=== PATIENT | female | born 1950 | race Caucasian/White ===

== ENCOUNTER 2016-06-27 09:10 | Inpatient (IN) | payer SELFPAY ==
--- NOTE | 2016-06-27 09:25 | EDM.PDOC ---
ED HISTORY OF PRESENT ILLNESS - General Chief Complaint: Respiratory Problem Stated Complaint: NAUSEA AND VOMITING Time Seen by Provider: 06/27/16 09:24 Source of Information: Reports: Patient History Limitations: Reports: No limitations - History of Present Illness INITIAL COMMENTS - FREE TEXT/NARRATIVE: 66-year-old female presents the ED at the request of walk in clinic to care provider today. Patient has not been well since last weekend. She developed fever cough headache diffuse myalgia compatible with influenza. She started having nausea and vomiting last Thursday, June 21. She was nauseated the following day but has vomited intermittently since that time with very little fluid or oral intake. Having diarrhea small quantities with sudden onset of urge to go 3-4 times per day the last few days as well. Nose lightheaded dizzy and very weak. Feels queasy and nauseated at this time.he states the cough is getting better. No color to the sputum. Does feel more short of breath on minimal exertion. Symptom Onset Date: 06/21/16 Timing/Duration: Reports: Day(s):, Getting worse, Gradual onset Severity: moderate Location, General: Reports: generalized (generalized weakness.), other ( continued nausea and inability to eat or drink much. Weak and dizzy.) Quality: Reports: Other (weak and dizzy) Improves with: Reports: None Worsens with: Reports: Rest Context, General: Denies: Activity, Exercise, Lifting, Sick contact, Trauma, Other Associated Symptoms (General): Reports: cough, cough w sputum, fever/chills ( perhaps low-grade fever but nothing high), headaches, loss of appetite, malaise , nausea/vomiting, shortness of breath, weakness, other (loose stools up to 4 times per day.). Denies: confusion, chest pain, diaphoresis (clear phlegm.), rash, seizure (on minimal exertion) Treatments JAW SKINNER: Reports: Acetaminophen - Related Data Allergies/ADRs: Allergies Allergy/AdvReac Type Severity Reaction Status Date / Time No Known Allergies Allergy Verified 06/27/16 09:34 Home Meds: Home Meds Enzymes,Digestive [Enzyme Digest] 1 tab PO DAILY 06/27/16 [History] Ginkgo Biloba 40 mg PO DAILY 06/27/16 [History] Herbal Drugs [[employer]] 1 each PO DAILY 06/27/16 [History] Social & Family History - Living Situation & Occupation Living situation: Reports: Occupation: retired ED ROS GENERAL - Review of Systems Review Of Systems: See Below Constitutional: Reports: fever, malaise, weakness, fatigue, decreased appetite ( feel she's lost 5 or 6 pounds over the last week.), weight loss. Denies: chills (low-grade), night sweats, diaphoresis, weight gain HEENT: Reports: Other (dry mouth.) Respiratory: Reports: shortness of breath (on exertion), cough. Denies: wheezing, pleuritic chest pain, hemoptysis (cough which is getting better her sputum tends to be clear.) Cardiovascular: Denies: Chest pain, Blood pressure problem Endocrine: Reports: fatigue GI/Abdominal: Reports: Abdominal pain (intermittent abdominal cramping pain. Sudden urge to defecate.), Diarrhea (loose stools yellow in color perhaps some mucus no blood. 3-4 per day. This is been loss of the last 3 days), Decreased appetite, Nausea (over the last week.), Vomiting. 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 She thought it was a circulation check she has good pulses. Has noticed a discoloration of her great toenail.) Psychiatric: Reports: No symptoms Hematologic/Lymphatic: Reports: no symptoms Immunologic: Reports: no symptoms ED EXAM, GENERAL - Physical Exam Exam: See Below Exam Limited By: No limitations General Appearance: alert, WD/WN, moderate distress (I. can smell ketones on her breath and she does appear ill.) Eye Exam: bilateral eye: normal inspection Ears: normal TMs Throat/Mouth: Other Head: atraumatic (tongue is very dry and coated. No infection in the oropharynx. ), normocephalic Neck: normal inspection, supple, non-tender, full range of motion, other (no JVD.). No: carotid bruit, lymphadenopathy (L), lymphadenopathy (R), thyromegaly Respiratory/Chest: rhonchi (scattered rhonchi in both upper lobes and left lower lobe.). No: wheezing Cardiovascular: regular rate, rhythm (resting tachycardia 1:15 per minute), no edema, no gallop, tachycardia, systolic murmur (grade 1/6 best heard at the left lower sternal border compatible with some mild aortic stenosis.). No: JVD Peripheral Pulses: 2+: posterior tibial (L), posterior tibial (R), dorsalis pedis (L), dorsalis pedis (R) GI/Abdominal: normal bowel sounds, soft, non tender, no organomegaly, no distention, no abnormal bruit, no mass Back Exam: normal inspection, full range of motion. No: CVA tenderness (L), CVA tenderness (R) Extremities: normal inspection, normal range of motion, non-tender, no pedal edema, normal capillary refill, other (he does have blackish discoloration of the great toenail on the right side. This is from blood trauma to the end of the nail with injury to the nailbed likely from upgaze to a shoe. He complains of numbness and tingling in the right leg particularly at bedtime compatible with a peripheral neuropathy. The circulation I she has good 2-3+ posterior tibial and and dorsalis pedis pulses to that foot. She has never been a smoker. She doesn't know she is diabetic.) Neurological: alert, oriented, CN II-XII intact Psychiatric: normal affect, normal mood Skin Exam: Warm, Dry, Intact, Normal color, No rash EKG INTERPRETATION EKG Date: 06/27/16 Time: 09:55 Rhythm: other (sinus tachycardia) Rate (beats/min): 110 [place]: LAD-left axis deviation (mild left axis deviation -11) P-wave: enlarged (consider left atrial hypertrophy) QRS: other ST-T: other (diffuse early repolarization pattern) QT: normal Course - Vital Signs Last Recorded V/S: Last Vital Signs Temp 37.5 C 06/27/16 11:59 Pulse 108 H 06/27/16 11:45 Resp 18 06/27/16 11:45 BP 137/69 06/27/16 11:45 Pulse Ox 94 L 06/27/16 11:45 - Orders/Labs/Meds Orders: Active Orders 24 hr Category Date Time Status EKG Documentation Completion [RC] STAT Care 06/27/16 09:36 Active Oxygen Therapy [RC] ASDIRECTED Care 06/27/16 10:21 Active Chest 1V Frontal [CR] Stat Exams 06/27/16 09:35 Taken KETONES,BLOOD [CHEM] Stat Lab 06/27/16 12:52 Ordered Dextrose 5%-0.9% NaCl [Dextrose 5%-Normal Saline] 1,000 Med 06/27/16 09:45 Active ml IV ASDIRECTED Levofloxacin/Dextrose 5%-Water [Levaquin in D5W 750 MG/ Med 06/27/16 11:40 Active 150 ML] 750 mg Premix Bag 1 bag IV ONETIME Sodium Chloride 0.9% [Normal Saline] 1,000 ml Med 06/27/16 11:45 Active IV ASDIRECTED Medication Orders Dextrose/Sodium Chloride (Dextrose 5%-Normal Saline) 1,000 mls @ 999 mls/hr IV ASDIRECTED KHALIF Last Admin: 06/27/16 10:06 Dose: 999 mls/hr Sodium Chloride (Normal Saline) 1,000 mls @ 500 mls/hr IV ASDIRECTED [facility] Last Admin: 06/27/16 11:55 Dose: 500 mls/hr Levofloxacin/Dextrose 750 mg/ (Premix) 150 mls @ 100 mls/hr IV ONETIME ONE Stop: 06/27/16 13:09 Last Admin: 06/27/16 11:55 Dose: 100 mls/hr Labs: Laboratory Tests 06/27/16 06/27/16 06/27/16 Range/Units 09:45 10:00 10:00 WBC 4.89 (3.98-10.04) K/mm3 RBC 5.40 H (3.98-5.22) M/mm3 Hgb 16.5 H (11.2-15.7) gm/L Hct 47.3 H (34.1-44.9) % MCV 87.6 (79.4-94.8) fl MCH 30.6 (25.6-32.2) pg MCHC 34.9 (32.2-35.5) g/dl RDW Std Deviation 41.0 (36.4-46.3) fL Plt Count 151 L (182-369) K/mm3 MPV 10.6 (9.4-12.3) fl Neutrophils % (Manual) 72 H (40-60) % Band Neutrophils % 7 (0-10) % Lymphocytes % (Manual) 16 L (20-40) % Atypical Lymphs % 0 % Monocytes % (Manual) 5 (2-10) % Eosinophils % (Manual) 0 L (0.7-5.8) % Basophils % (Manual) 0 L (0.1-1.2) Platelet Estimate Adequate RBC Morph Comment Normal PT 11.8 (8.0-13.0) SECONDS INR 1.08 Sodium (136-145) mEq/L Potassium (3.5-5.1) mEq/L Chloride (98-107) mEq/L Carbon Dioxide (21-32) mEq/L Anion Gap (5-15) BUN (7-18) mg/dL Creatinine (0.55-1.02) mg/dL Est Cr Clr Drug Dosing mL/min Estimated GFR (MDRD) (>60) mL/min BUN/Creatinine Ratio (14-18) Glucose (80-115) mg/dL Hemoglobin A1c (4.50-6.20) % Lactic Acid (0.4-2.0) mmol/L Calcium (8.5-10.1) mg/dL Magnesium (1.8-2.4) mg/dl Total Bilirubin (0.2-1.0) mg/dL AST (15-37) U/L ALT (14-59) U/L Alkaline Phosphatase (46-116) U/L CK-MB (CK-2) (0-3.6) ng/ml Troponin I (0.00-0.056) ng/mL C-Reactive Protein (<1.0) mg/dL Total Protein (6.4-8.2) g/dl Albumin (3.4-5.0) g/dl Globulin gm/dL Albumin/Globulin Ratio (1-2) Urine Color Yellow (Yellow) Urine Appearance Clear (Clear) Urine pH 6.0 (5.0-8.0) Ur Specific [place] 1.025 (1.005-1.030) Urine Protein 2+ H (Negative) Urine Glucose (UA) 2+ H (Negative) Urine Ketones 3+ H (Negative) Urine Occult Blood Negative (Negative) Urine Nitrite Negative (Negative) Urine Bilirubin 1+ H (Negative) Urine Urobilinogen 0.2 (0.2-1.0) Ur Leukocyte Esterase Negative (Negative) Urine RBC 0-5 (0-5) /hpf Urine WBC 0-5 (0-5) /hpf Ur Squamous Epith Cells 0-5 (0-5) /hpf Amorphous Sediment Few H (NOT SEEN) /hpf Urine Bacteria Few (FEW) /hpf Urine Mucus Not seen (FEW) /hpf 06/27/16 06/27/16 06/27/16 Range/Units 10:00 10:00 10:00 WBC (3.98-10.04) K/mm3 RBC (3.98-5.22) M/mm3 Hgb (11.2-15.7) gm/L Hct (34.1-44.9) % MCV (79.4-94.8) fl MCH (25.6-32.2) pg MCHC (32.2-35.5) g/dl RDW Std Deviation (36.4-46.3) fL Plt Count (182-369) K/mm3 MPV (9.4-12.3) fl Neutrophils % (Manual) (40-60) % Band Neutrophils % (0-10) % Lymphocytes % (Manual) (20-40) % Atypical Lymphs % % Monocytes % (Manual) (2-10) % Eosinophils % (Manual) (0.7-5.8) % Basophils % (Manual) (0.1-1.2) Platelet Estimate RBC Morph Comment PT (8.0-13.0) SECONDS INR Sodium 138 (136-145) mEq/L Potassium 3.5 (3.5-5.1) mEq/L Chloride 98 (98-107) mEq/L Carbon Dioxide 23 (21-32) mEq/L Anion Gap 20.5 H (5-15) BUN 9 (7-18) mg/dL Creatinine 0.5 L (0.55-1.02) mg/dL Est Cr Clr Drug Dosing 91.55 mL/min Estimated GFR (MDRD) > 60 (>60) mL/min BUN/Creatinine Ratio 18.0 (14-18) Glucose 317 H (80-115) mg/dL Hemoglobin A1c 9.10 H (4.50-6.20) % Lactic Acid 1.1 (0.4-2.0) mmol/L Calcium 8.9 (8.5-10.1) mg/dL Magnesium 1.5 L (1.8-2.4) mg/dl Total Bilirubin 1.2 H (0.2-1.0) mg/dL AST 20 (15-37) U/L ALT 23 (14-59) U/L Alkaline Phosphatase 83 (46-116) U/L CK-MB (CK-2) < 0.5 (0-3.6) ng/ml Troponin I < 0.017 (0.00-0.056) ng/mL C-Reactive Protein 4.9 H* (<1.0) mg/dL Total Protein 7.0 (6.4-8.2) g/dl Albumin 3.6 (3.4-5.0) g/dl Globulin 3.4 gm/dL Albumin/Globulin Ratio 1.1 (1-2) Urine Color (Yellow) Urine Appearance (Clear) Urine pH (5.0-8.0) Ur Specific [place] (1.005-1.030) Urine Protein (Negative) Urine Glucose (UA) (Negative) Urine Ketones (Negative) Urine Occult Blood (Negative) Urine Nitrite (Negative) Urine Bilirubin (Negative) Urine Urobilinogen (0.2-1.0) Ur Leukocyte Esterase (Negative) Urine RBC (0-5) /hpf Urine WBC (0-5) /hpf Ur Squamous Epith Cells (0-5) /hpf Amorphous Sediment (NOT SEEN) /hpf Urine Bacteria (FEW) /hpf Urine Mucus (FEW) /hpf Meds: Medications Generic Name Dose Route Start Last Admin Trade Name Freq PRN Reason Stop Dose Admin Dextrose/Sodium Chloride 1,000 mls @ 999 mls/hr 06/27/16 09:45 06/27/16 10:06 Dextrose 5%-Normal Saline IV 999 mls/hr ASDIRECTED KHALIF Administration Sodium Chloride 1,000 mls @ 500 mls/hr 06/27/16 11:45 06/27/16 11:55 Normal Saline IV 500 mls/hr ASDIRECTED KHALIF Administration Levofloxacin/Dextrose 750 mg/ 150 mls @ 100 mls/hr 06/27/16 11:40 06/27/16 11 :55 Premix IV 06/27/16 13:09 100 mls/hr ONETIME ONE Administration Discontinued Medications Generic Name Dose Route Start Last Admin Trade Name Freq PRN Reason Stop Dose Admin Insulin Human Regular 8 unit 06/27/16 13:01 Humulin R SUBCUT 06/27/16 13:02 ONETIME ONE Protocol Ondansetron HCl 4 mg 06/27/16 09:38 06/27/16 10:06 Zofran IVPUSH 06/27/16 09:39 4 mg ONETIME ONE Administration - Radiology Interpretation Free Text/Narrative:: 66-year-old female presents to the ED with a least a week long history of illness. She doesn't have insurance and thus which delayed her visit to the hospital. She was at the walk-in clinic and sent to the ED due to her illness. She has a resting tachycardia of 1:15 per minute. She's had intermittent nausea vomiting and some mild diarrhea for the better part of a week. Associated illness started with high fever body aches headache and cough suggestive of influenza. She has been able to eat or drink much. She is very weak. Breath smells of ketones. Orthostatic BPs to be done. Influenza screen to be done. Chest x-ray portable ECG labs in. IV will be D5 normal saline at open. Zofran 4 mg given IV. O2 sats are 90% and she'll be started on 2 L of oxygen by nasal specs. - Re-Assessments/Exams Free Text/Narrative Re-Assessment/Exam: 06/27/16 11:17 chest x-ray reveals mild hyperinflation. Normal cardiac silhouette. Marked prominence of the right pulmonary arteryor possibly infiltrates in the perihilar area on the right side. Diffuse lower lobe vascular congestion. No blunting of the costophrenic angles or pleural effusions. No evidence of pneumonia. ECG shows sinus tachycardia at 110 per minute diffuse early repolarization pattern consider left atrial hypertrophy pattern no signs of ischemia. Lab work shows a normal white count at 4.8 972% neutrophils 7% band cells however and 16% lymphocytes. Hemoglobin is 16.5 hematocrit 47.3. Platelets 101,000. Coags reveal a PT of 11.8 and INR of 1.08 a minimally elevated. Sodium is 138 potassium low-normal at 3.5. Anion gap is markedly elevated at 20.5 creatinine is 0.5 glucose 317 suggestion she is occult diabetes. Magnesium is low at 1.5 bilirubin 1.2. Troponin and CK-MB fractions are normal. CRP is elevated at 4.9 urine shows 2+ protein 2+ glucose and 2+ ketones. no signs of urinary tract infection.Serum ketones lactic acid are pending.influenza screen is negative. 06/27/16 12:53hemoglobin A1c is 9.10 indicating that she is in fact an occult type II diabetic but didn't know she was diabetic. His is due to lack of attendance for medical care due to lack of insurance. Lactic acid was 1.1. Serum ketones did not get done and they were reordered. 06/27/16 13:07case discussed with Dr. Alvarez electronic page makeup system operator hospitalist and the patient will be started on insulin subcutaneously. Plan is to give her 8 units at this time. She will be admitted to the [facility] surgery floor on telemetry as well. Departure - Departure Time of Disposition: 13:08 Disposition: Admitted As Inpatient 66 Condition: fair Clinical Impression: New onset type 2 diabetes mellitus, Bronchitis, Metabolic acidosis, Hypomagnesemia Intractable nausea and vomiting Qualifiers: Vomiting type: unspecified Qualified Code(s): R11.2 - Nausea with vomiting, unspecified Diarrhea Qualifiers: Diarrhea type: functional diarrhea Qualified Code(s): K59.1 - Functional diarrhea Forms: ED Department Discharge - My Orders Last 24 Hours: My Active Orders 06/27/16 09:35 Chest 1V Frontal [CR] Stat 06/27/16 09:36 EKG Documentation Completion [RC] STAT 06/27/16 09:45 Dextrose 5%-0.9% NaCl [Dextrose 5%-Normal Saline] 1,000 ml IV ASDIRECTED 06/27/16 10:21 Oxygen Therapy [RC] ASDIRECTED 06/27/16 11:40 Levofloxacin/Dextrose 5%-Water [Levaquin in D5W 750 MG/150 ML] 750 mg Premix Bag 1 bag IV ONETIME 06/27/16 11:45 Sodium Chloride 0.9% [Normal Saline] 1,000 ml IV ASDIRECTED 06/27/16 12:52 KETONES,BLOOD [CHEM] Stat - Assessment/Plan Last 24 Hours: My Active Orders 06/27/16 09:35 Chest 1V Frontal [CR] Stat 06/27/16 09:36 EKG Documentation Completion [RC] STAT 06/27/16 09:45 Dextrose 5%-0.9% NaCl [Dextrose 5%-Normal Saline] 1,000 ml IV ASDIRECTED 06/27/16 10:21 Oxygen Therapy [RC] ASDIRECTED 06/27/16 11:40 Levofloxacin/Dextrose 5%-Water [Levaquin in D5W 750 MG/150 ML] 750 mg Premix Bag 1 bag IV ONETIME 06/27/16 11:45 Sodium Chloride 0.9% [Normal Saline] 1,000 ml IV ASDIRECTED 06/27/16 12:52 KETONES,BLOOD [CHEM] Stat
[2016-06-27] MEDS ORDERED: Ondansetron 4 MG/2 ML SDV IVPUSH ONE (09:38)
[2016-06-27] MEDS ORDERED: Dextrose 5%-0.9% NaCl 1,000 ML IV SCH (09:45)
[2016-06-27] MEDS ORDERED: Levofloxacin/Dextrose 5%-Water 750 MG in Premix Bag 1 BAG IV ONE (11:40)
[2016-06-27] MEDS ORDERED: Sodium Chloride 0.9% 1,000 ML IV SCH (11:45)
[2016-06-27] MEDS ORDERED: Insulin Regular, Human 100 Units/ML 3 ML Vial SUBCUT ONE (13:01)
--- NOTE | 2016-06-27 13:28 | CR ---
Chest: Portable view of the chest was obtained. Comparison: No previous chest x-ray. Heart size is normal. Tortuous thoracic aorta is seen. Lungs are clear. Bony structures are grossly intact. Impression: 1. Nothing acute is identified on portable chest x-ray. Diagnostic code #1
[2016-06-27] MEDS ORDERED: Ondansetron 4 MG/2 ML SDV IVPUSH PRN (15:20)
[2016-06-27] MEDS ORDERED: Albuterol 0.042% 1.25 MG/3 ML Neb Soln NEB PRN (15:28)
[2016-06-27] MEDS: Sodium Chloride 0.9% 1,000 ML IV SCH ×2 (15:44→16:46)
[2016-06-27] MEDS: Albuterol/Ipratropium 3.0-0.5 MG/3 ML Neb Soln NEB PRN (15:53)
[2016-06-27] MEDS: cefTRIAXone 1 GM in Sodium Chloride 0.9% 100 ML IV SCH (17:51)
[2016-06-27] MEDS: Insulin Aspart 100 Units/ML 3 ML Pen SUBCUT SCH ×2 (17:53→21:12)
[2016-06-27] MEDS ORDERED: Magnesium Sulfate/Water 2 GM in Premix Bag 1 BAG IV ONE (19:34)
--- NOTE | 2016-06-27 19:47 | PCM.HP ---
H&P History of Present Illness - General Date of Service: 06/27/16 Admit Problem/Dx: Admission Diagnosis/Problem Admission Diagnosis/Problem Pneumonia Source of Information: Patient, Provider History Limitations: Reports: No limitations - History of Present Illness Initial Comments - Free Text/Narative: 66 year old female who has not seen a healthcare provider in several decades, presents with a multitude of complaints. Has not felt well since the fall of 2015. On this occasion, she mentions flu-like symptoms ie. headache, fever, cough, myalgia and weakness. Bouts of nausea and vomiting have occurred over a week. Additionally she has noted frequent loose stool, denies blood perhaps some mucous. On evaluation the patient has an AG and has been diagnosed with diabetes mellitus. Empiric treatment will also be started for CAP and repeat Influenza by PCR performed. Pending response to therapy a LOS>96 hours may be necessary. Onset of Symptoms: Reports: unknown/unsure Duration of Symptoms: Reports: Week(s):, Getting worse Location: Reports: generalized Severity: moderate Improves with: Reports: None Worsens with: Reports: None Associated Symptoms: Reports: cough w sputum, fever/chills, loss of appetite, malaise, nausea/vomiting, weakness - Related Data Allergies/Adverse Reactions: Allergies Allergy/AdvReac Type Severity Reaction Status Date / Time No Known Allergies Allergy Verified 06/27/16 09:34 Home Medications: Home Meds Enzymes,Digestive [Enzyme Digest] 1 tab PO DAILY 06/27/16 [History] Ginkgo Biloba 40 mg PO DAILY 06/27/16 [History] Herbal Drugs [[employer]] 1 each PO DAILY 06/27/16 [History] Past Medical History HEENT History: Reports: None 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 - Infectious Disease History Infectious Disease History: Reports: Chicken pox - Past Surgical History HEENT Surgical History: Reports: Tonsillectomy Musculoskeletal Surgical History: Reports: Other (see below) Other Musculoskeletal Surgeries/Procedures:: wrist surgery Social & Family History - Family History Family Medical History: Noncontributory - Tobacco Use Smoking Status *Q: Never Smoker Second Hand Smoke Exposure: No - Caffeine Use Caffeine Use: Reports: Coffee - Recreational Drug Use Recreational Drug Use: No - Living Situation & Occupation Living situation: Reports: Occupation: retired H&P Review of Systems - Review of Systems: Review Of Systems: See Below General: Reports: fever, chills, malaise, weakness, decreased appetite, weight loss HEENT: Reports: no symptoms Pulmonary: Reports: shortness of breath Cardiovascular: Reports: palpitations, lightheadedness Gastrointestinal: Reports: Abdominal pain, Diarrhea, Decreased appetite, Nausea , Vomiting Genitourinary: Reports: no symptoms Musculoskeletal: Reports: muscle pain. Denies: no symptoms Skin: Reports: no symptoms Psychiatric: Reports: no symptoms Neurological: Reports: no symptoms Hematologic/Lymphatic: Reports: no symptoms Immunologic: Reports: no symptoms Exam - Exam Exam: See Below - Vital Signs Vital Signs: Last Vital Signs Temp 37.5 C 06/27/16 15:43 Pulse 107 H 06/27/16 15:43 Resp 14 06/27/16 15:43 BP 136/66 06/27/16 15:43 Pulse Ox 97 06/27/16 15:57 Weight: 70.08 kg - Exam Quality Assessment: supplemental oxygen, DVT prophylaxis General: alert, oriented, cooperative HEENT: Conjunctiva clear, EACs clear, EOMI, Nares patent, Normal nasal septum, Pupils equal, Pupils reactive Neck: supple, trachea midline Lungs: Normal respiratory effort, Rhonchi Cardiovascular: regular rate, regular rhythm Abdomen: normal bowel sounds, soft (Female) Exam: Deferred Rectal (Female) Exam: Deferred Back Exam: normal inspection Extremities: normal pulses Skin: dry, other (sluggish capillary refill) Neurological: cranial nerves intact Neuro Extensive - Mental Status: alert, oriented x3 Neuro Extensive - Motor, Sensory, Reflexes: CN II-XII intact Psychiatric: alert, normal affect, normal mood - Patient Data Lab Results last 24 hrs: Laboratory Results - last 24 hr 06/27/16 Range/Units 16:55 POC Glucose 195 H (80-115) mg/dL Result Diagrams: 06/29/16 06:15 06/29/16 06:15 *Q Meaningful Use (ADM) - VTE *Q VTE Criteria *Q: - Stroke *Q Stroke Criteria *Q: - AMI *Q AMI Criteria *Q: - Problem List (1) Bronchitis SNOMED Code(s): 45367243 ICD Code: J40 - BRONCHITIS, NOT SPECIFIED ACUTE OR CHRONIC Status: Acute Current Visit: Yes (2) Diarrhea SNOMED Code(s): 50264418 ICD Code: R19.7 - DIARRHEA, UNSPECIFIED Status: Acute Current Visit: Yes Qualifiers: Diarrhea type: functional diarrhea Qualified Code(s): K59.1 - Functional diarrhea (3) Hypomagnesemia SNOMED Code(s): 272265074 ICD Code: E83.42 - HYPOMAGNESEMIA Status: Acute Current Visit: Yes (4) Intractable nausea and vomiting SNOMED Code(s): 249890263, 728874734 ICD Code: R11.2 - NAUSEA WITH VOMITING, UNSPECIFIED Status: Acute Current Visit: Yes Qualifiers: Vomiting type: unspecified Qualified Code(s): R11.2 - Nausea with vomiting , unspecified (5) Metabolic acidosis SNOMED Code(s): 98615543 ICD Code: E87.2 - ACIDOSIS Status: Acute Current Visit: Yes (6) New onset type 2 diabetes mellitus SNOMED Code(s): 03869042 ICD Code: E11.9 - TYPE 2 DIABETES MELLITUS WITHOUT COMPLICATIONS Status: Acute Current Visit: Yes Problem List Initiated/Reviewed/Updated: Yes Orders Last 24hrs: Active Orders 24 hr Category Date Time Status Antiembolic Devices [RC] DAILY Care 06/27/16 15:10 Active Blood Glucose Check, Bedside [RC] QIDACANDBED Care 06/27/16 15:24 Active RT Aerosol Therapy [RC] ASDIRECTED Care 06/27/16 15:24 Active Consult to Forensic Ballistics Expert [Consult to Diabetic Nurse Cons 06/27/16 15:08 Active Specialist] [CONS] Routine ADA Diabetic [[place] [employer] Diet] [DIET Diet 06/27/16 Dinner Active ] CXR [Chest 2V] [CR] Routine Exams 06/28/16 09:00 Ordered BASIC METABOLIC PANEL,BMP [CHEM] DAILY Lab 06/28/16 05:00 Ordered BASIC METABOLIC PANEL,BMP [CHEM] DAILY Lab 06/29/16 05:00 Ordered BASIC METABOLIC PANEL,BMP [CHEM] DAILY Lab 06/30/16 05:00 Ordered CBC WITH AUTO DIFF [HEME] DAILY Lab 06/28/16 05:00 Ordered CBC WITH AUTO DIFF [HEME] DAILY Lab 06/29/16 05:00 Ordered CBC WITH AUTO DIFF [HEME] DAILY Lab 06/30/16 05:00 Ordered CRP [C-REACTIVE PROTEIN] [CHEM] DAILY Lab 06/28/16 05:00 Ordered CRP [C-REACTIVE PROTEIN] [CHEM] DAILY Lab 06/29/16 05:00 Ordered CRP [C-REACTIVE PROTEIN] [CHEM] DAILY Lab 06/30/16 05:00 Ordered H.PYLORI ANTIGEN, STOOL [OP] Routine Lab 06/27/16 19:35 Uncollected LIPID PANEL [CHEM] Routine Lab 06/28/16 05:00 Ordered MAGNESIUM [CHEM] DAILY Lab 06/28/16 05:00 Ordered MAGNESIUM [CHEM] DAILY Lab 06/29/16 05:00 Ordered MAGNESIUM [CHEM] DAILY Lab 06/30/16 05:00 Ordered ROTAVIRUS DIRECT ANTIGEN STOOL [OP] Routine Lab 06/27/16 15:16 Uncollected STREP PNEUMONIAE ANTIGEN [MREF] Routine Lab 06/27/16 17:00 Ordered WBC, STOOL [OP] Routine Lab 06/27/16 15:17 Uncollected Albuterol [Proventil Neb Soln] Med 06/27/16 15:28 Active 1.25 mg NEB Q4H PRN Albuterol/Ipratropium [DuoNeb 3.0-0.5 MG/3 ML] Med 06/27/16 15:23 Active 3 ml NEB QID PRN Azithromycin [Zithromax] 500 mg Med 06/28/16 10:00 Active Sodium Chloride 0.9% [Normal Saline] 250 ml IV Q24H Enoxaparin [Lovenox] Med 06/28/16 09:00 Active 40 mg SUBCUT DAILY Insulin Aspart [NovoLOG] Med 06/27/16 17:00 Active See Protocol SUBCUT QIDACANDBED Magnesium Sulfate/Water [Magnesium Sulfate 2 GM in Med 06/27/16 19:34 Ordered Water 50 ML] 2 gm Premix Bag 1 bag IV ONETIME Ondansetron [Zofran] Med 06/27/16 15:20 Active 4 mg IVPUSH Q8H PRN Simvastatin [Zocor] Med 06/27/16 21:00 Active 10 mg PO BEDTIME cefTRIAXone [Rocephin] 1 gm Med 06/27/16 17:00 Active Sodium Chloride 0.9% [Normal Saline] 100 ml IV Q24H BRENDAN Hose [Antiembolic Hose] [OM.PC] Routine Oth 06/27/16 15:22 Ordered Resuscitation Status Routine Resus Stat 06/27/16 18:58 Ordered Medication Orders Albuterol (Proventil Neb Soln) 1.25 mg NEB Q4H PRN PRN Reason: Shortness of Breath Albuterol/Ipratropium (Duoneb 3.0-0.5 Mg/3 Ml) 3 ml NEB QID PRN PRN Reason: Shortness of Breath Last Admin: 06/27/16 15:53 Dose: 3 ml Enoxaparin Sodium (Lovenox) 40 mg SUBCUT DAILY [facility] Azithromycin 500 mg/ Sodium (Chloride) 250 mls @ 250 mls/hr IV Q24H [facility] Ceftriaxone Sodium 1 gm/ (Sodium Chloride) 100 mls @ 200 mls/hr IV Q24H [facility] Last Admin: 06/27/16 17:51 Dose: 200 mls/hr Magnesium Sulfate 2 gm/ Premix 50 mls @ 25 mls/hr IV ONETIME ONE Stop: 06/27/16 21:33 Insulin Aspart (Novolog) 0 unit SUBCUT QIDACANDBED [facility] PRN Reason: Protocol Last Admin: 06/27/16 17:53 Dose: 2 units Ondansetron HCl (Zofran) 4 mg IVPUSH Q8H PRN PRN Reason: Nausea/Vomiting Simvastatin (Zocor) 10 mg PO BEDTIME [facility] Assessment/Plan Comment:: Impression: Hyperglycemia with new dx of DM; metabolic acidosis Query URI cf CAP Query Influenza Diarrhea, unclear etiology Abnormal electrolytes Dehydration Plan: IVF IV ATBs Screen for infection DM teaching/education Start insulin coverage Nebs/O2 maintain sat >92% DVT/GI prophylaxis
[2016-06-27] MEDS: Simvastatin 10 MG Tab PO SCH (20:16)
[2016-06-28] MEDS: Insulin Aspart 100 Units/ML 3 ML Pen SUBCUT SCH ×4 (07:40→21:17)
[2016-06-28] MEDS: Enoxaparin 40 MG/0.4 ML Syringe SUBCUT SCH (08:02)
[2016-06-28] MEDS: Albuterol/Ipratropium 3.0-0.5 MG/3 ML Neb Soln NEB PRN (09:17)
[2016-06-28] MEDS: Azithromycin 500 MG in Sodium Chloride 0.9% 250 ML IV SCH (09:58)
--- NOTE | 2016-06-28 11:09 | CR ---
Chest: 2 views of the chest were obtained. Comparison: Previous chest x-ray of 06/27/16. Heart size has questionably increased in size from prior chest x-ray. Tortuous thoracic aorta is seen. Mild atelectasis is seen within the left lung base. Questionable pulmonary vascular congestion is seen on current exam. Impression: 1. Questionable findings of early CHF which is an interval change from recent exam. 2. Mild left basilar atelectasis. Diagnostic code #3
[2016-06-28] MEDS: Potassium Chloride 10% 20 MEQ/15 ML Soln 15 ML UD Cup PO SCH ×2 (16:00→21:15)
[2016-06-28] MEDS: cefTRIAXone 1 GM in Sodium Chloride 0.9% 100 ML IV SCH (16:01)
--- NOTE | 2016-06-28 18:27 | PCM.PN ---
- General Info Date of Service: 06/28/16 Functional Status: Reports: tolerating diet, ambulating, urinating - Review of Systems General: Reports: weakness, fatigue, malaise HEENT: Reports: no symptoms Pulmonary: Reports: cough Cardiovascular: Reports: no symptoms Gastrointestinal: Reports: Decreased appetite Genitourinary: Reports: no symptoms Musculoskeletal: Reports: no symptoms Skin: Reports: no symptoms Neurological: Reports: dizziness. Denies: no symptoms Psychiatric: Reports: no symptoms - Patient Data Vitals - most recent: Last Vital Signs Temp 36.3 C 06/28/16 16:26 Pulse 93 06/28/16 16:26 Resp 22 H 06/28/16 16:26 BP 117/57 L 06/28/16 16:26 Pulse Ox 96 06/28/16 16:26 Weight - most recent: 70.08 kg I&O - last 24 hours: Intake & Output 06/28/16 06/28/16 06/28/16 06:59 14:59 22:59 Intake Total 450 120 675 Output Total 400 300 Balance 50 120 375 Lab Results last 24 hrs: Laboratory Results - last 24 hr 06/27/16 06/28/16 06/28/16 Range/Units 20:52 05:20 05:20 WBC 5.94 (3.98-10.04) K/mm3 RBC 4.62 (3.98-5.22) M/mm3 Hgb 14.4 (11.2-15.7) gm/L Hct 41.9 (34.1-44.9) % MCV 90.7 (79.4-94.8) fl MCH 31.2 (25.6-32.2) pg MCHC 34.4 (32.2-35.5) g/dl RDW Std Deviation 41.9 (36.4-46.3) fL Plt Count 129 L (182-369) K/mm3 MPV 10.3 (9.4-12.3) fl Neut % (Auto) 74.5 H (34.0-71.1) % Lymph % (Auto) 14.3 L (19.3-51.7) % Osborne % (Auto) 10.8 (4.7-12.5) % Eos % (Auto) 0 L (0.7-5.8) Baso % (Auto) 0.2 (0.1-1.2) % Neut # 4.43 (1.56-6.13) K/mm3 Lymph # 0.85 L (1.18-3.74) K/mm3 Osborne # 0.64 H (0.24-0.36) K/mm3 Eos # 0.00 L (0.04-0.36) K/mm3 Baso # 0.01 (0.01-0.08) K/mm3 Sodium 139 (136-145) mEq/L Potassium 2.9 L (3.5-5.1) mEq/L Chloride 103 (98-107) mEq/L Carbon Dioxide 23 (21-32) mEq/L Anion Gap 15.9 H (5-15) BUN 3 L (7-18) mg/dL Creatinine 0.4 L (0.55-1.02) mg/dL Est Cr Clr Drug Dosing 109.42 mL/min Estimated GFR (MDRD) > 60 (>60) mL/min BUN/Creatinine Ratio 7.5 L (14-18) Glucose 227 H (80-115) mg/dL POC Glucose 139 H (80-115) mg/dL Calcium 8.0 L (8.5-10.1) mg/dL Magnesium 1.9 (1.8-2.4) mg/dl C-Reactive Protein 16.1 H* (<1.0) mg/dL Triglycerides 64 (<150) mg/dL Cholesterol 113 (<200) mg/dL LDL Cholesterol Direct 76 (<100) mg/dL HDL Cholesterol 26.0 L (40-59) mg/dL 06/28/16 06/28/16 Range/Units 11:20 17:45 WBC (3.98-10.04) K/mm3 RBC (3.98-5.22) M/mm3 Hgb (11.2-15.7) gm/L Hct (34.1-44.9) % MCV (79.4-94.8) fl MCH (25.6-32.2) pg MCHC (32.2-35.5) g/dl RDW Std Deviation (36.4-46.3) fL Plt Count (182-369) K/mm3 MPV (9.4-12.3) fl Neut % (Auto) (34.0-71.1) % Lymph % (Auto) (19.3-51.7) % Osborne % (Auto) (4.7-12.5) % Eos % (Auto) (0.7-5.8) Baso % (Auto) (0.1-1.2) % Neut # (1.56-6.13) K/mm3 Lymph # (1.18-3.74) K/mm3 Osborne # (0.24-0.36) K/mm3 Eos # (0.04-0.36) K/mm3 Baso # (0.01-0.08) K/mm3 Sodium (136-145) mEq/L Potassium (3.5-5.1) mEq/L Chloride (98-107) mEq/L Carbon Dioxide (21-32) mEq/L Anion Gap (5-15) BUN (7-18) mg/dL Creatinine (0.55-1.02) mg/dL Est Cr Clr Drug Dosing mL/min Estimated GFR (MDRD) (>60) mL/min BUN/Creatinine Ratio (14-18) Glucose (80-115) mg/dL POC Glucose 304 H 201 H (80-115) mg/dL Calcium (8.5-10.1) mg/dL Magnesium (1.8-2.4) mg/dl C-Reactive Protein (<1.0) mg/dL Triglycerides (<150) mg/dL Cholesterol (<200) mg/dL LDL Cholesterol Direct (<100) mg/dL HDL Cholesterol (40-59) mg/dL Med Orders - Current: Current Medications Albuterol (Proventil Neb Soln) 1.25 mg NEB Q4H PRN PRN Reason: Shortness of Breath Albuterol/Ipratropium (Duoneb 3.0-0.5 Mg/3 Ml) 3 ml NEB QID PRN PRN Reason: Shortness of Breath Last Admin: 06/28/16 09:17 Dose: 3 ml Enoxaparin Sodium (Lovenox) 40 mg SUBCUT DAILY [facility] Last Admin: 06/28/16 08:02 Dose: 40 mg Azithromycin 500 mg/ Sodium (Chloride) 250 mls @ 250 mls/hr IV Q24H [facility] Last Admin: 06/28/16 09:58 Dose: 250 mls/hr Ceftriaxone Sodium 1 gm/ (Sodium Chloride) 100 mls @ 200 mls/hr IV Q24H [facility] Last Admin: 06/28/16 16:01 Dose: 200 mls/hr Insulin Aspart (Novolog) 0 unit SUBCUT QIDACANDBED [facility] PRN Reason: Protocol Last Admin: 06/28/16 17:46 Dose: 4 units Ondansetron HCl (Zofran) 4 mg IVPUSH Q8H PRN PRN Reason: Nausea/Vomiting Last Admin: 06/28/16 12:42 Dose: 4 mg Potassium Chloride (Potassium Chloride Solution) 60 meq PO BID [facility] Stop: 06/28/16 21:01 Last Admin: 06/28/16 16:00 Dose: 60 meq Simvastatin (Zocor) 10 mg PO BEDTIME [facility] Last Admin: 06/27/16 20:16 Dose: 10 mg Discontinued Medications Dextrose/Sodium Chloride (Dextrose 5%-Normal Saline) 1,000 mls @ 999 mls/hr IV ASDIRECTED [facility] Last Admin: 06/27/16 10:06 Dose: 999 mls/hr Sodium Chloride (Normal Saline) 1,000 mls @ 500 mls/hr IV ASDIRECTED [facility] Last Admin: 06/27/16 11:55 Dose: 500 mls/hr Levofloxacin/Dextrose 750 mg/ (Premix) 150 mls @ 100 mls/hr IV ONETIME ONE Stop: 06/27/16 13:09 Last Admin: 06/27/16 11:55 Dose: 100 mls/hr Sodium Chloride (Normal Saline) 1,000 mls @ 999 mls/hr IV ONETIME [facility] Stop: 06/28/16 16:19 Last Admin: 06/27/16 16:46 Dose: 999 mls/hr Magnesium Sulfate 2 gm/ Premix 50 mls @ 25 mls/hr IV ONETIME ONE Stop: 06/27/16 21:33 Last Admin: 06/27/16 20:16 Dose: 25 mls/hr Insulin Human Regular (Humulin R) 8 unit SUBCUT ONETIME ONE PRN Reason: Protocol Stop: 06/27/16 13:02 Last Admin: 06/27/16 13:24 Dose: 8 unit Ondansetron HCl (Zofran) 4 mg IVPUSH ONETIME ONE Stop: 06/27/16 09:39 Last Admin: 06/27/16 10:06 Dose: 4 mg - Exam Quality Assessment: DVT prophylaxis General: alert, oriented, cooperative, no acute distress HEENT: Pupils equal, Pupils reactive, EOMI Neck: supple, trachea midline Lungs: Normal respiratory effort Cardiovascular: regular rate, regular rhythm Abdomen: bowel sounds present, soft, no tenderness, no distension (Female) Exam: Deferred Back Exam: normal inspection Extremities: normal pulses Skin: warm, dry Neurological: normal gait, normal speech Psy/Mental Status: alert, normal affect, normal mood - Problem List & Annotations (1) Bronchitis SNOMED Code(s): 38417631 Code(s): J40 - BRONCHITIS, NOT SPECIFIED ACUTE OR CHRONIC Status: Acute Current Visit: Yes (2) Diarrhea SNOMED Code(s): 52251263 Code(s): R19.7 - DIARRHEA, UNSPECIFIED Status: Acute Current Visit: Yes Qualifiers: Diarrhea type: functional diarrhea Qualified Code(s): K59.1 - Functional diarrhea (3) Hypomagnesemia SNOMED Code(s): 628633370 Code(s): E83.42 - HYPOMAGNESEMIA Status: Acute Current Visit: Yes (4) Intractable nausea and vomiting SNOMED Code(s): 463015993, 373702231 Code(s): R11.2 - NAUSEA WITH VOMITING, UNSPECIFIED Status: Acute Current Visit: Yes Qualifiers: Vomiting type: unspecified Qualified Code(s): R11.2 - Nausea with vomiting , unspecified (5) Metabolic acidosis SNOMED Code(s): 48718953 Code(s): E87.2 - ACIDOSIS Status: Acute Current Visit: Yes (6) New onset type 2 diabetes mellitus SNOMED Code(s): 01818397 Code(s): E11.9 - TYPE 2 DIABETES MELLITUS WITHOUT COMPLICATIONS Status: Acute Current Visit: Yes - Problem List Review Problem List Initiated/Reviewed/Updated: Yes - My Orders Last 24 Hours: My Active Orders 06/27/16 18:58 Resuscitation Status Routine 06/27/16 19:35 H.PYLORI ANTIGEN, STOOL [OP] Routine 06/27/16 21:00 Simvastatin [Zocor] 10 mg PO BEDTIME 06/28/16 09:00 Enoxaparin [Lovenox] 40 mg SUBCUT DAILY 06/28/16 10:00 Azithromycin [Zithromax] 500 mg Sodium Chloride 0.9% [Normal Saline] 250 ml IV Q24H 06/28/16 15:45 Potassium Chloride [Potassium Chloride Solution] 60 meq PO BID 06/29/16 05:00 BASIC METABOLIC PANEL,BMP [CHEM] DAILY CBC WITH AUTO DIFF [HEME] DAILY CRP [C-REACTIVE PROTEIN] [CHEM] DAILY MAGNESIUM [CHEM] DAILY 06/30/16 05:00 BASIC METABOLIC PANEL,BMP [CHEM] DAILY CBC WITH AUTO DIFF [HEME] DAILY CRP [C-REACTIVE PROTEIN] [CHEM] DAILY MAGNESIUM [CHEM] DAILY - Plan Plan:: Impression: Hyperglycemia with new dx of DM; metabolic acidosis Query URI cf CAP Check Influenza by PCR Diarrhea, unclear etiology, pending Abnormal electrolytes, hypokalemia Dehydration Plan: IVF IV ATBs Screen for infection DM teaching/education Start insulin coverage Nebs/O2 maintain sat >92% DVT/GI prophylaxis
[2016-06-28] MEDS: Simvastatin 10 MG Tab PO SCH ×2 (21:15→21:26)
[2016-06-29] MEDS: Insulin Aspart 100 Units/ML 3 ML Pen SUBCUT SCH ×4 (07:41→21:11)
[2016-06-29] MEDS: Azithromycin 500 MG in Sodium Chloride 0.9% 250 ML IV SCH (09:20)
[2016-06-29] MEDS: Enoxaparin 40 MG/0.4 ML Syringe SUBCUT SCH (09:21)
[2016-06-29] MEDS: cefTRIAXone 1 GM in Sodium Chloride 0.9% 100 ML IV SCH (17:55)
--- NOTE | 2016-06-29 18:53 | PCM.PN ---
- General Info Date of Service: 06/29/16 Functional Status: Reports: pain controlled, tolerating diet, ambulating, urinating - Review of Systems General: Reports: weakness HEENT: Reports: no symptoms Pulmonary: Reports: no symptoms Cardiovascular: Reports: no symptoms Gastrointestinal: Reports: No symptoms Genitourinary: Reports: no symptoms Musculoskeletal: Reports: no symptoms Skin: Reports: no symptoms Neurological: Reports: no symptoms Psychiatric: Reports: no symptoms - Patient Data Vitals - most recent: Last Vital Signs Temp 36.7 C 06/29/16 15:50 Pulse 89 06/29/16 15:50 Resp 20 06/29/16 15:50 BP 134/81 06/29/16 15:50 Pulse Ox 97 06/29/16 15:50 Weight - most recent: 71.758 kg I&O - last 24 hours: Intake & Output 06/29/16 06/29/16 06/29/16 06:59 14:59 22:59 Intake Total 800 0 1260 Output Total 300 Balance 800 0 960 Lab Results last 24 hrs: Laboratory Results - last 24 hr 06/28/16 06/29/16 06/29/16 Range/Units 21:11 06:15 06:15 WBC 4.00 (3.98-10.04) K/mm3 RBC 4.61 (3.98-5.22) M/mm3 Hgb 14.1 (11.2-15.7) gm/L Hct 42.1 (34.1-44.9) % MCV 91.3 (79.4-94.8) fl MCH 30.6 (25.6-32.2) pg MCHC 33.5 (32.2-35.5) g/dl RDW Std Deviation 42.4 (36.4-46.3) fL Plt Count 147 L (182-369) K/mm3 MPV 10.9 (9.4-12.3) fl Neut % (Auto) 58.8 (34.0-71.1) % Lymph % (Auto) 30.0 (19.3-51.7) % [place] % (Auto) 9.8 (4.7-12.5) % Eos % (Auto) 0.8 (0.7-5.8) Baso % (Auto) 0.3 (0.1-1.2) % Neut # 2.36 (1.56-6.13) K/mm3 Lymph # 1.20 (1.18-3.74) K/mm3 [place] # 0.39 H (0.24-0.36) K/mm3 Eos # 0.03 L (0.04-0.36) K/mm3 Baso # 0.01 (0.01-0.08) K/mm3 Manual Slide Review Normal smear Sodium 142 (136-145) mEq/L Potassium 4.3 (3.5-5.1) mEq/L Chloride 107 (98-107) mEq/L Carbon Dioxide 29 (21-32) mEq/L Anion Gap 10.3 (5-15) BUN 6 L (7-18) mg/dL Creatinine 0.4 L (0.55-1.02) mg/dL Est Cr Clr Drug Dosing 109.42 mL/min Estimated GFR (MDRD) > 60 (>60) mL/min BUN/Creatinine Ratio 15.0 (14-18) Glucose 221 H (80-115) mg/dL POC Glucose 303 H (80-115) mg/dL Calcium 8.6 (8.5-10.1) mg/dL Magnesium 1.7 L (1.8-2.4) mg/dl C-Reactive Protein 13.5 H* (<1.0) mg/dL 06/29/16 06/29/16 06/29/16 Range/Units 06:47 11:42 17:13 WBC (3.98-10.04) K/mm3 RBC (3.98-5.22) M/mm3 Hgb (11.2-15.7) gm/L Hct (34.1-44.9) % MCV (79.4-94.8) fl MCH (25.6-32.2) pg MCHC (32.2-35.5) g/dl RDW Std Deviation (36.4-46.3) fL Plt Count (182-369) K/mm3 MPV (9.4-12.3) fl Neut % (Auto) (34.0-71.1) % Lymph % (Auto) (19.3-51.7) % [place] % (Auto) (4.7-12.5) % Eos % (Auto) (0.7-5.8) Baso % (Auto) (0.1-1.2) % Neut # (1.56-6.13) K/mm3 Lymph # (1.18-3.74) K/mm3 [place] # (0.24-0.36) K/mm3 Eos # (0.04-0.36) K/mm3 Baso # (0.01-0.08) K/mm3 Manual Slide Review Sodium (136-145) mEq/L Potassium (3.5-5.1) mEq/L Chloride (98-107) mEq/L Carbon Dioxide (21-32) mEq/L Anion Gap (5-15) BUN (7-18) mg/dL Creatinine (0.55-1.02) mg/dL Est Cr Clr Drug Dosing mL/min Estimated GFR (MDRD) (>60) mL/min BUN/Creatinine Ratio (14-18) Glucose (80-115) mg/dL POC Glucose 196 H 266 H 196 H (80-115) mg/dL Calcium (8.5-10.1) mg/dL Magnesium (1.8-2.4) mg/dl C-Reactive Protein (<1.0) mg/dL [place] Results last 24 hrs: Microbiology 06/28/16 18:45 Stool for WBCs - Final Stool / Feces - Stool, Formed NO WBC SEEN 06/28/16 18:45 Helicobacter pylori Antigen - Final Stool / Feces NEGATIVE H. PYLORI AG 06/28/16 18:45 Rotavirus Antigen - Final Stool / Feces - Stool, Formed NEGATIVE ROTAVIRUS ANTIGEN Med Orders - Current: Current Medications Albuterol (Proventil Neb Soln) 1.25 mg NEB Q4H PRN PRN Reason: Shortness of Breath Albuterol/Ipratropium (Duoneb 3.0-0.5 Mg/3 Ml) 3 ml NEB QID PRN PRN Reason: Shortness of Breath Last Admin: 06/28/16 09:17 Dose: 3 ml Enoxaparin Sodium (Lovenox) 40 mg SUBCUT DAILY [facility] Last Admin: 06/29/16 09:21 Dose: 40 mg Azithromycin 500 mg/ Sodium (Chloride) 250 mls @ 250 mls/hr IV Q24H [facility] Last Admin: 06/29/16 09:20 Dose: 250 mls/hr Ceftriaxone Sodium 1 gm/ (Sodium Chloride) 100 mls @ 200 mls/hr IV Q24H [facility] [place] Last Admin: 06/29/16 17:55 Dose: 200 mls/hr Insulin Aspart (Novolog) 0 unit SUBCUT QIDACANDBED [facility] PRN Reason: Protocol Last Admin: 06/29/16 17:28 Dose: 2 units Ondansetron HCl (Zofran) 4 mg IVPUSH Q8H PRN PRN Reason: Nausea/Vomiting Last Admin: 06/28/16 12:42 Dose: 4 mg Simvastatin (Zocor) 10 mg PO BEDTIME [facility] [place] Last Admin: 06/28/16 21:26 Dose: Not Given Discontinued Medications Dextrose/Sodium Chloride (Dextrose 5%-Normal Saline) 1,000 mls @ 999 mls/hr IV ASDIRECTED [facility] [place] Last Admin: 06/27/16 10:06 Dose: 999 mls/hr Sodium Chloride (Normal Saline) 1,000 mls @ 500 mls/hr IV ASDIRECTED [facility] [place] Last Admin: 06/27/16 11:55 Dose: 500 mls/hr Levofloxacin/Dextrose 750 mg/ (Premix) 150 mls @ 100 mls/hr IV ONETIME ONE Stop: 06/27/16 13:09 Last Admin: 06/27/16 11:55 Dose: 100 mls/hr Sodium Chloride (Normal Saline) 1,000 mls @ 999 mls/hr IV ONETIME [facility] Stop: 06/28/16 16:19 Last Admin: 06/27/16 16:46 Dose: 999 mls/hr Magnesium Sulfate 2 gm/ Premix 50 mls @ 25 mls/hr IV ONETIME ONE Stop: 06/27/16 21:33 Last Admin: 06/27/16 20:16 Dose: 25 mls/hr Insulin Human Regular (Humulin R) 8 unit SUBCUT ONETIME ONE PRN Reason: Protocol Stop: 06/27/16 13:02 Last Admin: 06/27/16 13:24 Dose: 8 unit Ondansetron HCl (Zofran) 4 mg IVPUSH ONETIME ONE Stop: 06/27/16 09:39 Last Admin: 06/27/16 10:06 Dose: 4 mg Potassium Chloride (Potassium Chloride Solution) 60 meq PO BID [facility] [place] Stop: 06/28/16 21:01 Last Admin: 06/28/16 21:15 Dose: 60 meq - Exam Quality Assessment: DVT prophylaxis General: alert, oriented, cooperative, no acute distress HEENT: Pupils equal, Pupils reactive, EOMI Neck: trachea midline, no JVD Lungs: Normal respiratory effort Cardiovascular: regular rate, regular rhythm Abdomen: bowel sounds present, soft, no tenderness, no distension (Female) Exam: Deferred Back Exam: normal inspection Extremities: normal pulses Skin: warm Neurological: normal gait, normal speech Psy/Mental Status: alert, normal affect, normal mood - Problem List & Annotations (1) Bronchitis SNOMED Code(s): 39031340 Code(s): J40 - BRONCHITIS, NOT SPECIFIED ACUTE OR CHRONIC Status: Acute Current Visit: Yes (2) Diarrhea SNOMED Code(s): 30577442 Code(s): R19.7 - DIARRHEA, UNSPECIFIED Status: Acute Current Visit: Yes Qualifiers: Diarrhea type: functional diarrhea Qualified Code(s): K59.1 - Functional diarrhea (3) Hypomagnesemia SNOMED Code(s): 292348771 Code(s): E83.42 - HYPOMAGNESEMIA Status: Acute Current Visit: Yes (4) Intractable nausea and vomiting SNOMED Code(s): 653149883, 185574406 Code(s): R11.2 - NAUSEA WITH VOMITING, UNSPECIFIED Status: Acute Current Visit: Yes Qualifiers: Vomiting type: unspecified Qualified Code(s): R11.2 - Nausea with vomiting , unspecified (5) Metabolic acidosis SNOMED Code(s): 28362632 Code(s): E87.2 - ACIDOSIS Status: Acute Current Visit: Yes (6) New onset type 2 diabetes mellitus SNOMED Code(s): 01573408 Code(s): E11.9 - TYPE 2 DIABETES MELLITUS WITHOUT COMPLICATIONS Status: Acute Current Visit: Yes - Problem List Review Problem List Initiated/Reviewed/Updated: Yes - My Orders Last 24 Hours: My Active Orders 06/29/16 09:01 Blood Culture x2 Reflex Set [OM.PC] Stat 06/29/16 09:40 CULTURE BLOOD [BC] Stat 06/29/16 10:10 CULTURE BLOOD [BC] Stat 06/30/16 05:00 BASIC METABOLIC PANEL,BMP [CHEM] DAILY CBC WITH AUTO DIFF [HEME] DAILY CRP [C-REACTIVE PROTEIN] [CHEM] DAILY MAGNESIUM [CHEM] DAILY - Plan Plan:: Impression: Hyperglycemia with new dx of DM; metabolic acidosis Query URI cf CAP Check Influenza by PCR Diarrhea, unclear etiology, pending Abnormal electrolytes, hypokalemia Dehydration Plan: IVF IV ATBs Screen for infection DM teaching/education Start insulin coverage Nebs/O2 maintain sat >92% DVT/GI prophylaxis DC 24-48 hours
[2016-06-29] MEDS: Simvastatin 10 MG Tab PO SCH (20:30)
[2016-06-29] MEDS ORDERED: Magnesium Sulfate/Water 2 GM in Premix Bag 1 BAG IV ONE (21:00)
[2016-06-30] MEDS: Insulin Aspart 100 Units/ML 3 ML Pen SUBCUT SCH ×4 (09:00→21:19)
[2016-06-30] MEDS: Azithromycin 500 MG in Sodium Chloride 0.9% 250 ML IV SCH (10:34)
[2016-06-30] MEDS ORDERED: Famotidine 20 MG/2 ML SDV IVPUSH ONE ×2 (10:35→15:30)
[2016-06-30] MEDS: Enoxaparin 40 MG/0.4 ML Syringe SUBCUT SCH (10:35)
[2016-06-30] MEDS: Magnesium Oxide 400 MG Tab PO SCH ×2 (12:11→21:17)
--- NOTE | 2016-06-30 14:12 | PCM.PN ---
<Taylor Yip M - Last Filed: 06/30/16 14:04> - General Info Date of Service: 06/30/16 Admission Dx/Problem (Free Text): Admission Diagnosis/Problem Admission Diagnosis/Problem Pneumonia Yvette is seen this afternoon. She is doing well. She is still coughing but no chest pain, no SOB. Labs are improved. She is working with [employer] and will cont f/ up with her after discharge. She was started on metformin this morning. Functional Status: Reports: pain controlled, tolerating diet, ambulating, urinating. Denies: new symptoms - Review of Systems General: Reports: no symptoms HEENT: Reports: no symptoms Pulmonary: Reports: cough. Denies: shortness of breath, sputum Cardiovascular: Reports: no symptoms. Denies: chest pain, palpitations, dyspnea on exertion Gastrointestinal: Reports: Nausea (mild nausea this morning) Genitourinary: Reports: no symptoms Musculoskeletal: Reports: no symptoms Skin: Reports: no symptoms Neurological: Reports: no symptoms Psychiatric: Reports: no symptoms - Patient Data Vitals - most recent: Last Vital Signs Temp 99.0 F 06/30/16 07:55 Pulse 89 06/30/16 07:55 Resp 22 H 06/30/16 07:55 BP 154/71 H 06/30/16 07:55 Pulse Ox 93 L 06/30/16 07:55 Weight - most recent: 73.21 kg I&O - last 24 hours: Intake & Output 06/29/16 06/30/16 06/30/16 22:59 06:59 14:59 Intake Total 1260 450 660 Output Total 300 1000 Balance 960 -550 660 Lab Results last 24 hrs: Laboratory Results - last 24 hr 06/29/16 06/29/16 06/30/16 Range/Units 17:13 20:36 05:53 WBC 4.11 (3.98-10.04) K/mm3 RBC 4.67 (3.98-5.22) M/mm3 Hgb 14.5 (11.2-15.7) gm/L Hct 41.9 (34.1-44.9) % MCV 89.7 (79.4-94.8) fl MCH 31.0 (25.6-32.2) pg MCHC 34.6 (32.2-35.5) g/dl RDW Std Deviation 41.6 (36.4-46.3) fL Plt Count 150 L (182-369) K/mm3 MPV 11.3 (9.4-12.3) fl Neut % (Auto) 48.3 (34.0-71.1) % Lymph % (Auto) 38.7 (19.3-51.7) % [place] % (Auto) 10.5 (4.7-12.5) % Eos % (Auto) 1.5 (0.7-5.8) Baso % (Auto) 0.5 (0.1-1.2) % Neut # 1.99 (1.56-6.13) K/mm3 Lymph # 1.59 (1.18-3.74) K/mm3 [place] # 0.43 H (0.24-0.36) K/mm3 Eos # 0.06 (0.04-0.36) K/mm3 Baso # 0.02 (0.01-0.08) K/mm3 Manual Slide Review Normal smear Sodium (136-145) mEq/L Potassium (3.5-5.1) mEq/L Chloride (98-107) mEq/L Carbon Dioxide (21-32) mEq/L Anion Gap (5-15) BUN (7-18) mg/dL Creatinine (0.55-1.02) mg/dL Est Cr Clr Drug Dosing mL/min Estimated GFR (MDRD) (>60) mL/min BUN/Creatinine Ratio (14-18) Glucose (80-115) mg/dL POC Glucose 196 H 305 H (80-115) mg/dL Calcium (8.5-10.1) mg/dL Magnesium (1.8-2.4) mg/dl C-Reactive Protein (<1.0) mg/dL TSH 3rd Generation (0.358-3.74) uIU/mL 06/30/16 06/30/16 06/30/16 Range/Units 05:53 06:03 10:53 WBC (3.98-10.04) K/mm3 RBC (3.98-5.22) M/mm3 Hgb (11.2-15.7) gm/L Hct (34.1-44.9) % MCV (79.4-94.8) fl MCH (25.6-32.2) pg MCHC (32.2-35.5) g/dl RDW Std Deviation (36.4-46.3) fL Plt Count (182-369) K/mm3 MPV (9.4-12.3) fl Neut % (Auto) (34.0-71.1) % Lymph % (Auto) (19.3-51.7) % [place] % (Auto) (4.7-12.5) % Eos % (Auto) (0.7-5.8) Baso % (Auto) (0.1-1.2) % Neut # (1.56-6.13) K/mm3 Lymph # (1.18-3.74) K/mm3 [place] # (0.24-0.36) K/mm3 Eos # (0.04-0.36) K/mm3 Baso # (0.01-0.08) K/mm3 Manual Slide Review Sodium 140 (136-145) mEq/L Potassium 3.8 (3.5-5.1) mEq/L Chloride 106 (98-107) mEq/L Carbon Dioxide 26 (21-32) mEq/L Anion Gap 11.8 (5-15) BUN 6 L (7-18) mg/dL Creatinine 0.4 L (0.55-1.02) mg/dL Est Cr Clr Drug Dosing 109.42 mL/min Estimated GFR (MDRD) > 60 (>60) mL/min BUN/Creatinine Ratio 15.0 (14-18) Glucose 187 H (80-115) mg/dL POC Glucose 181 H (80-115) mg/dL Calcium 8.7 (8.5-10.1) mg/dL Magnesium 1.8 (1.8-2.4) mg/dl C-Reactive Protein 6.8 H* (<1.0) mg/dL TSH 3rd Generation 0.700 (0.358-3.74) uIU/mL 06/30/16 Range/Units 11:31 WBC (3.98-10.04) K/mm3 RBC (3.98-5.22) M/mm3 Hgb (11.2-15.7) gm/L Hct (34.1-44.9) % MCV (79.4-94.8) fl MCH (25.6-32.2) pg MCHC (32.2-35.5) g/dl RDW Std Deviation (36.4-46.3) fL Plt Count (182-369) K/mm3 MPV (9.4-12.3) fl Neut % (Auto) (34.0-71.1) % Lymph % (Auto) (19.3-51.7) % [place] % (Auto) (4.7-12.5) % Eos % (Auto) (0.7-5.8) Baso % (Auto) (0.1-1.2) % Neut # (1.56-6.13) K/mm3 Lymph # (1.18-3.74) K/mm3 [place] # (0.24-0.36) K/mm3 Eos # (0.04-0.36) K/mm3 Baso # (0.01-0.08) K/mm3 Manual Slide Review Sodium (136-145) mEq/L Potassium (3.5-5.1) mEq/L Chloride (98-107) mEq/L Carbon Dioxide (21-32) mEq/L Anion Gap (5-15) BUN (7-18) mg/dL Creatinine (0.55-1.02) mg/dL Est Cr Clr Drug Dosing mL/min Estimated GFR (MDRD) (>60) mL/min BUN/Creatinine Ratio (14-18) Glucose (80-115) mg/dL POC Glucose 298 H (80-115) mg/dL Calcium (8.5-10.1) mg/dL Magnesium (1.8-2.4) mg/dl C-Reactive Protein (<1.0) mg/dL TSH 3rd Generation (0.358-3.74) uIU/mL [place] Results last 24 hrs: Microbiology 06/29/16 10:10 Aerobic Blood Culture - Preliminary Blood - Venous - Lab Draw NO GROWTH AFTER 1 DAY Anaerobic Blood Culture - Preliminary NO GROWTH AFTER 1 DAY 06/29/16 09:40 Aerobic Blood Culture - Preliminary Blood - Venous NO GROWTH AFTER 1 DAY Anaerobic Blood Culture - Preliminary NO GROWTH AFTER 1 DAY Med Orders - Current: Current Medications Albuterol (Proventil Neb Soln) 1.25 mg NEB Q4H PRN PRN Reason: Shortness of Breath Albuterol/Ipratropium (Duoneb 3.0-0.5 Mg/3 Ml) 3 ml NEB QID PRN PRN Reason: Shortness of Breath Last Admin: 06/28/16 09:17 Dose: 3 ml Aspirin (Aspirin) 81 mg PO BEDTIME [facility] Enoxaparin Sodium (Lovenox) 40 mg SUBCUT DAILY [facility] Last Admin: 06/30/16 10:35 Dose: 40 mg Azithromycin 500 mg/ Sodium (Chloride) 250 mls @ 250 mls/hr IV Q24H [facility] Last Admin: 06/30/16 10:34 Dose: 250 mls/hr Ceftriaxone Sodium 1 gm/ (Sodium Chloride) 100 mls @ 200 mls/hr IV Q24H [facility] Last Admin: 06/29/16 17:55 Dose: 200 mls/hr Insulin Aspart (Novolog) 0 unit SUBCUT QIDACANDBED [facility] PRN Reason: Protocol Last Admin: 06/30/16 12:11 Dose: 6 units Lisinopril (Prinivil) 2.5 mg PO DAILY [facility] Magnesium Oxide (Magnesium Oxide) 400 mg PO BID [facility] Last Admin: 06/30/16 12:11 Dose: 400 mg Metformin HCl (Glucophage) 500 mg PO BIDMEALS [facility] Ondansetron HCl (Zofran) 4 mg IVPUSH Q8H PRN PRN Reason: Nausea/Vomiting Last Admin: 06/28/16 12:42 Dose: 4 mg Simvastatin (Zocor) 10 mg PO BEDTIME [facility] Last Admin: 06/29/16 20:30 Dose: 10 mg Discontinued Medications Famotidine (Pepcid) 20 mg IVPUSH ONETIME ONE Stop: 06/30/16 10:36 Dextrose/Sodium Chloride (Dextrose 5%-Normal Saline) 1,000 mls @ 999 mls/hr IV ASDIRECTED [facility] Last Admin: 06/27/16 10:06 Dose: 999 mls/hr Sodium Chloride (Normal Saline) 1,000 mls @ 500 mls/hr IV ASDIRECTED [facility] Last Admin: 06/27/16 11:55 Dose: 500 mls/hr Levofloxacin/Dextrose 750 mg/ (Premix) 150 mls @ 100 mls/hr IV ONETIME ONE Stop: 06/27/16 13:09 Last Admin: 06/27/16 11:55 Dose: 100 mls/hr Sodium Chloride (Normal Saline) 1,000 mls @ 999 mls/hr IV ONETIME [facility] Stop: 06/28/16 16:19 Last Admin: 06/27/16 16:46 Dose: 999 mls/hr Magnesium Sulfate 2 gm/ Premix 50 mls @ 25 mls/hr IV ONETIME ONE Stop: 06/27/16 21:33 Last Admin: 06/27/16 20:16 Dose: 25 mls/hr Magnesium Sulfate 2 gm/ Premix 50 mls @ 25 mls/hr IV ONETIME ONE Stop: 06/29/16 22:59 Last Admin: 06/29/16 20:30 Dose: 25 mls/hr Insulin Human Regular (Humulin R) 8 unit SUBCUT ONETIME ONE PRN Reason: Protocol Stop: 06/27/16 13:02 Last Admin: 06/27/16 13:24 Dose: 8 unit Ondansetron HCl (Zofran) 4 mg IVPUSH ONETIME ONE Stop: 06/27/16 09:39 Last Admin: 06/27/16 10:06 Dose: 4 mg Potassium Chloride (Potassium Chloride Solution) 60 meq PO BID [facility] Stop: 06/28/16 21:01 Last Admin: 06/28/16 21:15 Dose: 60 meq - Exam Quality Assessment: DVT prophylaxis General: alert, oriented, cooperative, no acute distress HEENT: Pupils equal, Pupils reactive, EOMI, Mucous membr. moist/pink Neck: supple Lungs: Clear to auscultation, Normal respiratory effort, Decreased breath sounds (to bases) Cardiovascular: regular rate, regular rhythm Abdomen: bowel sounds present, soft, no tenderness, no distension (Female) Exam: Deferred Back Exam: normal inspection Extremities: edema (trace to ankles) Peripheral Pulses: 1+: dorsalis pedis (L), dorsalis pedis (R) Skin: warm, dry, intact Neurological: no new focal deficit Psy/Mental Status: alert, normal affect, normal mood - Problem List & Annotations (1) New onset type 2 diabetes mellitus SNOMED Code(s): 94942457 Code(s): E11.9 - TYPE 2 DIABETES MELLITUS WITHOUT COMPLICATIONS Status: Acute Priority: High (2) Bronchitis SNOMED Code(s): 32631245 Code(s): J40 - BRONCHITIS, NOT SPECIFIED ACUTE OR CHRONIC Status: Acute Priority: High (3) Diarrhea SNOMED Code(s): 82675869 Code(s): R19.7 - DIARRHEA, UNSPECIFIED Status: Acute Priority: High Qualifiers: Diarrhea type: functional diarrhea Qualified Code(s): K59.1 - Functional diarrhea (4) Hypomagnesemia SNOMED Code(s): 727333474 Code(s): E83.42 - HYPOMAGNESEMIA Status: Acute Priority: High (5) Intractable nausea and vomiting SNOMED Code(s): 028925061, 302647300 Code(s): R11.2 - NAUSEA WITH VOMITING, UNSPECIFIED Status: Acute Priority : High Qualifiers: Vomiting type: unspecified Qualified Code(s): R11.2 - Nausea with vomiting , unspecified (6) Metabolic acidosis SNOMED Code(s): 98351235 Code(s): E87.2 - ACIDOSIS Status: Resolved Priority: High - Problem List Review Problem List Initiated/Reviewed/Updated: Yes - My Orders Last 24 Hours: My Active Orders 06/30/16 10:45 Magnesium Oxide 400 mg PO BID 06/30/16 13:45 Lisinopril [Prinivil] 2.5 mg PO DAILY 06/30/16 17:00 metFORMIN [Glucophage] 500 mg PO BIDMEALS 06/30/16 21:00 Aspirin 81 mg PO BEDTIME 07/01/16 05:11 BASIC METABOLIC PANEL,BMP [CHEM] AM CBC WITH AUTO DIFF [HEME] AM - Plan Plan:: Impression: Hyperglycemia with new dx of DM; metabolic acidosis Query URI cf CAP Check Influenza by PCR-- Negative Diarrhea, unclear etiology, pending Abnormal electrolytes, hypokalemia, hypomagnesemia-- replaced/supplmented Dehydration--IVF stopped Plan: IV ATBs Screen for infection--negative DM teaching/education- patient very receptive, will cont as outpatient. -I had long discussion with patient re: recommendations/standards for DM patients: baby ASA daily, ACEI daily, statin, controlling sugar. Patient is very hesitant to do anything else but treat her blood sugars at this time. I reviewed importance of prevention with her, renal and cardiac protection regarding DM. Started her on lisinopril, ASA, statin has been started. However, I am unsure if patient will be willing to continue these as outpatient. She was started on metformin this morning. Start insulin coverage. Will use metformin only on discharge. Nebs/O2 maintain sat >92%-- she is off supplemental oxygen. DVT/GI prophylaxis She will f/up with Dr. Mccauley as outpatient to establish PCP, cont fup with [facility]. Likely dc tomorrow am. <Marley Alvarez - Last Filed: 07/01/16 19:38> - Patient Data Vitals - most recent: Last Vital Signs Temp 36.7 C 07/01/16 08:00 Pulse 95 07/01/16 08:00 Resp 18 07/01/16 08:00 BP 141/66 H 07/01/16 09:33 Pulse Ox 97 07/01/16 08:00 I&O - last 24 hours: Intake & Output 07/01/16 07/01/16 07/01/16 06:59 14:59 22:59 Intake Total 500 210 Output Total 1150 Balance -650 210 Lab Results last 24 hrs: Laboratory Results - last 24 hr 06/28/16 06/30/16 07/01/16 Range/Units 05:48 21:18 06:25 WBC 4.02 (3.98-10.04) K/mm3 RBC 4.83 (3.98-5.22) M/mm3 Hgb 14.8 (11.2-15.7) gm/L Hct 43.3 (34.1-44.9) % MCV 89.6 (79.4-94.8) fl MCH 30.6 (25.6-32.2) pg MCHC 34.2 (32.2-35.5) g/dl RDW Std Deviation 41.0 (36.4-46.3) fL Plt Count 222 (182-369) K/mm3 MPV 10.8 (9.4-12.3) fl Neut % (Auto) 51.0 (34.0-71.1) % Lymph % (Auto) 34.1 (19.3-51.7) % [place] % (Auto) 12.2 (4.7-12.5) % Eos % (Auto) 1.2 (0.7-5.8) Baso % (Auto) 0.5 (0.1-1.2) % Neut # 2.05 (1.56-6.13) K/mm3 Lymph # 1.37 (1.18-3.74) K/mm3 [place] # 0.49 H (0.24-0.36) K/mm3 Eos # 0.05 (0.04-0.36) K/mm3 Baso # 0.02 (0.01-0.08) K/mm3 Manual Slide Review Abnormal smear Sodium (136-145) mEq/L Potassium (3.5-5.1) mEq/L Chloride (98-107) mEq/L Carbon Dioxide (21-32) mEq/L Anion Gap (5-15) BUN (7-18) mg/dL Creatinine (0.55-1.02) mg/dL Est Cr Clr Drug Dosing mL/min Estimated GFR (MDRD) (>60) mL/min BUN/Creatinine Ratio (14-18) Glucose (80-115) mg/dL POC Glucose 228 H 333 H (80-115) mg/dL Calcium (8.5-10.1) mg/dL 07/01/16 07/01/16 Range/Units 06:25 06:42 WBC (3.98-10.04) K/mm3 RBC (3.98-5.22) M/mm3 Hgb (11.2-15.7) gm/L Hct (34.1-44.9) % MCV (79.4-94.8) fl MCH (25.6-32.2) pg MCHC (32.2-35.5) g/dl RDW Std Deviation (36.4-46.3) fL Plt Count (182-369) K/mm3 MPV (9.4-12.3) fl Neut % (Auto) (34.0-71.1) % Lymph % (Auto) (19.3-51.7) % [place] % (Auto) (4.7-12.5) % Eos % (Auto) (0.7-5.8) Baso % (Auto) (0.1-1.2) % Neut # (1.56-6.13) K/mm3 Lymph # (1.18-3.74) K/mm3 [place] # (0.24-0.36) K/mm3 Eos # (0.04-0.36) K/mm3 Baso # (0.01-0.08) K/mm3 Manual Slide Review Sodium 140 (136-145) mEq/L Potassium 3.9 (3.5-5.1) mEq/L Chloride 104 (98-107) mEq/L Carbon Dioxide 28 (21-32) mEq/L Anion Gap 11.9 (5-15) BUN 4 L (7-18) mg/dL Creatinine 0.4 L (0.55-1.02) mg/dL Est Cr Clr Drug Dosing 109.42 mL/min Estimated GFR (MDRD) > 60 (>60) mL/min BUN/Creatinine Ratio 10.0 L (14-18) Glucose 246 H (80-115) mg/dL POC Glucose 227 H (80-115) mg/dL Calcium 9.3 (8.5-10.1) mg/dL [place] Results last 24 hrs: Microbiology 06/29/16 10:10 Aerobic Blood Culture - Preliminary Blood - Venous - Lab Draw NO GROWTH AFTER 2 DAYS Anaerobic Blood Culture - Preliminary NO GROWTH AFTER 2 DAYS 06/29/16 09:40 Aerobic Blood Culture - Preliminary Blood - Venous NO GROWTH AFTER 2 DAYS Anaerobic Blood Culture - Preliminary NO GROWTH AFTER 2 DAYS Med Orders - Current: Current Medications Discontinued Medications Albuterol (Proventil Neb Soln) 1.25 mg NEB Q4H PRN PRN Reason: Shortness of Breath Albuterol/Ipratropium (Duoneb 3.0-0.5 Mg/3 Ml) 3 ml NEB QID PRN PRN Reason: Shortness of Breath Last Admin: 06/28/16 09:17 Dose: 3 ml Aspirin (Aspirin) 81 mg PO BEDTIME [facility] Last Admin: 06/30/16 21:17 Dose: Not Given Enoxaparin Sodium (Lovenox) 40 mg SUBCUT DAILY [facility] Last Admin: 07/01/16 09:32 Dose: 40 mg Famotidine (Pepcid) 20 mg IVPUSH ONETIME ONE Stop: 06/30/16 10:36 Last Admin: 06/30/16 16:29 Dose: Not Given Famotidine (Pepcid) 20 mg IVPUSH ONETIME ONE Stop: 06/30/16 15:31 Last Admin: 06/30/16 16:20 Dose: 20 mg Dextrose/Sodium Chloride (Dextrose 5%-Normal Saline) 1,000 mls @ 999 mls/hr IV ASDIRECTED [facility] Last Admin: 06/27/16 10:06 Dose: 999 mls/hr Sodium Chloride (Normal Saline) 1,000 mls @ 500 mls/hr IV ASDIRECTED [facility] Last Admin: 06/27/16 11:55 Dose: 500 mls/hr Levofloxacin/Dextrose 750 mg/ (Premix) 150 mls @ 100 mls/hr IV ONETIME ONE Stop: 06/27/16 13:09 Last Admin: 06/27/16 11:55 Dose: 100 mls/hr Azithromycin 500 mg/ Sodium (Chloride) 250 mls @ 250 mls/hr IV Q24H [facility] Last Admin: 07/01/16 09:33 Dose: 250 mls/hr Sodium Chloride (Normal Saline) 1,000 mls @ 999 mls/hr IV ONETIME [facility] Stop: 06/28/16 16:19 Last Admin: 06/27/16 16:46 Dose: 999 mls/hr Ceftriaxone Sodium 1 gm/ (Sodium Chloride) 100 mls @ 200 mls/hr IV Q24H [facility] Last Admin: 06/30/16 16:20 Dose: 200 mls/hr Magnesium Sulfate 2 gm/ Premix 50 mls @ 25 mls/hr IV ONETIME ONE Stop: 06/27/16 21:33 Last Admin: 06/27/16 20:16 Dose: 25 mls/hr Magnesium Sulfate 2 gm/ Premix 50 mls @ 25 mls/hr IV ONETIME ONE Stop: 06/29/16 22:59 Last Admin: 06/29/16 20:30 Dose: 25 mls/hr Insulin Aspart (Novolog) 0 unit SUBCUT QIDACANDBED [facility] PRN Reason: Protocol Last Admin: 07/01/16 07:49 Dose: 4 units Insulin Human Regular (Humulin R) 8 unit SUBCUT ONETIME ONE PRN Reason: Protocol Stop: 06/27/16 13:02 Last Admin: 06/27/16 13:24 Dose: 8 unit Lisinopril (Prinivil) 2.5 mg PO DAILY [facility] Last Admin: 07/01/16 09:33 Dose: 2.5 mg Magnesium Oxide (Magnesium Oxide) 400 mg PO BID [facility] Last Admin: 07/01/16 09:33 Dose: 400 mg Metformin HCl (Glucophage) 500 mg PO BIDMEALS [facility] Last Admin: 07/01/16 06:42 Dose: 500 mg Metformin HCl (Glucophage) 500 mg PO DAILY [facility] Ondansetron HCl (Zofran) 4 mg IVPUSH ONETIME ONE Stop: 06/27/16 09:39 Last Admin: 06/27/16 10:06 Dose: 4 mg Ondansetron HCl (Zofran) 4 mg IVPUSH Q8H PRN PRN Reason: Nausea/Vomiting Last Admin: 06/28/16 12:42 Dose: 4 mg Potassium Chloride (Potassium Chloride Solution) 60 meq PO BID [facility] Stop: 06/28/16 21:01 Last Admin: 06/28/16 21:15 Dose: 60 meq Simvastatin (Zocor) 10 mg PO BEDTIME [facility] Last Admin: 06/30/16 21:17 Dose: Not Given - Problem List & Annotations (1) Bronchitis SNOMED Code(s): 97103492 Code(s): J40 - BRONCHITIS, NOT SPECIFIED ACUTE OR CHRONIC Status: Acute Priority: High (2) Diarrhea SNOMED Code(s): 25161634 Code(s): R19.7 - DIARRHEA, UNSPECIFIED Status: Acute Priority: High Qualifiers: Diarrhea type: functional diarrhea Qualified Code(s): K59.1 - Functional diarrhea (3) Hypomagnesemia SNOMED Code(s): 796727748 Code(s): E83.42 - HYPOMAGNESEMIA Status: Acute Priority: High (4) Intractable nausea and vomiting SNOMED Code(s): 003425074, 780220093 Code(s): R11.2 - NAUSEA WITH VOMITING, UNSPECIFIED Status: Acute Priority : High Qualifiers: Vomiting type: unspecified Qualified Code(s): R11.2 - Nausea with vomiting , unspecified (5) Metabolic acidosis SNOMED Code(s): 81024465 Code(s): E87.2 - ACIDOSIS Status: Resolved Priority: High (6) New onset type 2 diabetes mellitus SNOMED Code(s): 32615963 Code(s): E11.9 - TYPE 2 DIABETES MELLITUS WITHOUT COMPLICATIONS Status: Acute Priority: High - Plan Plan:: LOS expected 96 hours to complete treatment plan and diabetic education.
[2016-06-30] MEDS: cefTRIAXone 1 GM in Sodium Chloride 0.9% 100 ML IV SCH (16:20)
[2016-06-30] MEDS: Lisinopril 2.5 MG Tab PO SCH (16:29)
[2016-06-30] MEDS: metFORMIN 500 MG Tab PO SCH (17:38)
[2016-06-30] MEDS ORDERED: Aspirin 81 MG Tab.Chew PO SCH (21:00)
[2016-06-30] MEDS: Simvastatin 10 MG Tab PO SCH (21:17)
[2016-07-01] MEDS: metFORMIN 500 MG Tab PO SCH (06:42)
--- NOTE | 2016-07-01 07:33 | PCM.DCSUM1 ---
<Taylor Yip - Last Filed: 07/01/16 08:47> Discharge Summary - Hospital Course Free Text/Narrative:: 66 year old female admitted to medical surgical unit through ED, who has not seen a healthcare provider in several decades, presents with a multitude of complaints. Has not felt well since the fall of 2015. On this occasion, she mentions flu-like symptoms ie. headache, fever, cough, myalgia and weakness. Bouts of nausea and vomiting have occurred over a week. Additionally she has noted frequent loose stool, denies blood perhaps some mucous. On evaluation the patient has an AG and has been diagnosed with diabetes mellitus. Empiric treatment will also be started for CAP, negative influenza screening and repeat Influenza by PCR performed. Pending response to therapy a LOS>96 hours may be necessary. Patient was admitted to medical surgical floor. She was placed on Zithromax and Rocephin for CAP coverage and tamiflu prophylactic until confirmatory PCR influenza returned negative. A1C returned at 9.10. She was on sliding scale insulin during her stay with sugars ranging in the 250's-350's. She was started on metformin 500mg BID. CDE was consulted for education. She is anxious for discharge home today. She is doing well, stable and feels comfortable and confident being discharged home today. Call was placed to Dr. Pride to review discharge and course of hospital stay; she will follow up with him next week. - Discharge Data Discharge Date: 07/01/16 (admit date 06/27/16) Discharge Disposition: Home, Self-Care 01 Condition: Fair - Discharge Diagnosis/Problem(s) (1) New onset type 2 diabetes mellitus SNOMED Code(s): 11729737 ICD Code: E11.9 - TYPE 2 DIABETES MELLITUS WITHOUT COMPLICATIONS Status: Acute Priority: High (2) Bronchitis SNOMED Code(s): 79923112 ICD Code: J40 - BRONCHITIS, NOT SPECIFIED ACUTE OR CHRONIC Status: Acute Priority: High (3) Diarrhea SNOMED Code(s): 43725492 ICD Code: R19.7 - DIARRHEA, UNSPECIFIED Status: Acute Priority: High Qualifiers: Diarrhea type: functional diarrhea Qualified Code(s): K59.1 - Functional diarrhea (4) Hypomagnesemia SNOMED Code(s): 288413346 ICD Code: E83.42 - HYPOMAGNESEMIA Status: Acute Priority: High (5) Intractable nausea and vomiting SNOMED Code(s): 795431471, 666832673 ICD Code: R11.2 - NAUSEA WITH VOMITING, UNSPECIFIED Status: Acute Priority: High Qualifiers: Vomiting type: unspecified Qualified Code(s): R11.2 - Nausea with vomiting , unspecified (6) Metabolic acidosis SNOMED Code(s): 46001438 ICD Code: E87.2 - ACIDOSIS Status: Resolved Priority: High - Patient Summary/Data Operative Procedure(s) Performed: None Complications: None Consults: Consultations 06/27/16 15:08 Consult to Market Investigator [Consult to Diabetic Nurse Specialist] [CONS] Routine Labs Pending at D/C: None Recommended Follow-up Testing/Procedures: Follow up/establish care with PCP, Dr. cMcauley within 5-7 days of discharge Planned Operative Procedure(s) after DC: None Hospital Course: As above - Patient Instructions Diet: Heart Healthy Diet, Low Sodium, Drink 8-10+ Glasses/Day, Diabetic Diet Activity: As Tolerated (exercise 10-30 minutes daily- working your way up in minutes as you become more comfortable) Showering/Bathing: May Shower Notify Provider of: Fever, Increased Pain, Nausea and/or Vomiting (worsening cough, shortness of breath, chest pains) - Discharge Plan Prescriptions/Med Rec: Aspirin 81 mg PO BEDTIME #30 tab.chew Lisinopril [Prinivil] 2.5 mg PO DAILY #30 tablet Magnesium Oxide 400 mg PO BID #60 tablet Simvastatin [Zocor] 10 mg PO BEDTIME #30 tablet metFORMIN [Glucophage] 500 mg PO BIDMEALS #60 tablet Home Medications: Home Meds Enzymes,Digestive [Enzyme Digest] 1 tab PO DAILY 06/27/16 [History] Ginkgo Biloba 40 mg PO DAILY 06/27/16 [History] Herbal Drugs [[employer]] 1 each PO DAILY 06/27/16 [History] Aspirin 81 mg PO BEDTIME #30 tab.chew 07/01/16 [Rx] Lisinopril [Prinivil] 2.5 mg PO DAILY #30 tablet 07/01/16 [Rx] Magnesium Oxide 400 mg PO BID #60 tablet 07/01/16 [Rx] Simvastatin [Zocor] 10 mg PO BEDTIME #30 tablet 07/01/16 [Rx] metFORMIN [Glucophage] 500 mg PO BIDMEALS #60 tablet 07/01/16 [Rx] Patient Handouts: Diabetes and Foot Care, Tips for Eating Away From Home If You Have Diabetes, Diabetes and Sick Day Management, Diabetic Ketoacidosis, Basic Carbohydrate Counting for Diabetes Mellitus, Type 2 Diabetes Mellitus, Adult, [id number], Community-Acquired Pneumonia, Adult, [id number] Forms: ED Department Discharge Referrals: Allyson Pride [Physician] - 07/10/16 10:00 am (Please see Dr. Allyson Pride on 07/10 . Come at 10:00 AM to register at the [facility] located on the east end of the hospital building. please come 30 minutes prior to appointment and bring insurance cards.) - Discharge Summary/Plan Comment DC Time >30 min.: Yes (40 min) - General Info Date of Service: 07/01/16 Admission Dx/Problem (Free Text: Admission Diagnosis/Problem Admission Diagnosis/Problem Pneumonia New onset diabetes- A1c 9.10 Pneumonia/acute bronchitis- cough much improved, SOB resolved. Slept well last night. Appetite slowly returning. Nausea resolved. She is anxious to go home this morning. She wishes to continue follow up with JURGEN Chawla and is eager to fup with Dr. Pride for PCP. Functional Status: Reports: pain controlled, tolerating diet, ambulating, urinating. Denies: new symptoms - Review of Systems General: Reports: no symptoms HEENT: Reports: no symptoms Pulmonary: Reports: cough. Denies: shortness of breath, pleuritic chest pain, wheezing Cardiovascular: Reports: no symptoms Gastrointestinal: Reports: No symptoms. Denies: Nausea, Vomiting Genitourinary: Reports: no symptoms Musculoskeletal: Reports: no symptoms Skin: Reports: no symptoms Neurological: Reports: no symptoms, other (patient stated yesterday that she had intermittent tingling and numbness to feet x 3 months; tingling has resolved as of the past 3 days---concern for early diabetic neuropathy) Psychiatric: Reports: no symptoms - Patient Data Vitals - Most Recent: Last Vital Signs Temp 97.5 F 07/01/16 04:36 Pulse 86 07/01/16 04:36 Resp 16 07/01/16 04:36 BP 152/82 H 07/01/16 04:36 Pulse Ox 95 07/01/16 04:36 Weight - Most Recent: 70.307 kg I&O - Last 24 hours: Intake & Output 06/30/16 07/01/16 07/01/16 22:59 06:59 14:59 Intake Total 1310 500 Output Total 800 1150 Balance 510 -650 Lab Results - Last 24 hrs: Laboratory Results - last 24 hr 06/28/16 06/30/16 06/30/16 Range/Units 05:48 05:53 10:53 WBC 4.11 (3.98-10.04) K/mm3 RBC 4.67 (3.98-5.22) M/mm3 Hgb 14.5 (11.2-15.7) gm/L Hct 41.9 (34.1-44.9) % MCV 89.7 (79.4-94.8) fl MCH 31.0 (25.6-32.2) pg MCHC 34.6 (32.2-35.5) g/dl RDW Std Deviation 41.6 (36.4-46.3) fL Plt Count 150 L (182-369) K/mm3 MPV 11.3 (9.4-12.3) fl Neut % (Auto) 48.3 (34.0-71.1) % Lymph % (Auto) 38.7 (19.3-51.7) % Henry % (Auto) 10.5 (4.7-12.5) % Eos % (Auto) 1.5 (0.7-5.8) Baso % (Auto) 0.5 (0.1-1.2) % Neut # 1.99 (1.56-6.13) K/mm3 Lymph # 1.59 (1.18-3.74) K/mm3 Henry # 0.43 H (0.24-0.36) K/mm3 Eos # 0.06 (0.04-0.36) K/mm3 Baso # 0.02 (0.01-0.08) K/mm3 Manual Slide Review Normal smear POC Glucose 228 H (80-115) mg/dL TSH 3rd Generation 0.700 (0.358-3.74) uIU/mL 06/30/16 06/30/16 06/30/16 Range/Units 11:31 17:16 21:18 WBC (3.98-10.04) K/mm3 RBC (3.98-5.22) M/mm3 Hgb (11.2-15.7) gm/L Hct (34.1-44.9) % MCV (79.4-94.8) fl MCH (25.6-32.2) pg MCHC (32.2-35.5) g/dl RDW Std Deviation (36.4-46.3) fL Plt Count (182-369) K/mm3 MPV (9.4-12.3) fl Neut % (Auto) (34.0-71.1) % Lymph % (Auto) (19.3-51.7) % Henry % (Auto) (4.7-12.5) % Eos % (Auto) (0.7-5.8) Baso % (Auto) (0.1-1.2) % Neut # (1.56-6.13) K/mm3 Lymph # (1.18-3.74) K/mm3 Henry # (0.24-0.36) K/mm3 Eos # (0.04-0.36) K/mm3 Baso # (0.01-0.08) K/mm3 Manual Slide Review POC Glucose 298 H 259 H 333 H (80-115) mg/dL TSH 3rd Generation (0.358-3.74) uIU/mL 07/01/16 07/01/16 Range/Units 06:25 06:42 WBC 4.02 (3.98-10.04) K/mm3 RBC 4.83 (3.98-5.22) M/mm3 Hgb 14.8 (11.2-15.7) gm/L Hct 43.3 (34.1-44.9) % MCV 89.6 (79.4-94.8) fl MCH 30.6 (25.6-32.2) pg MCHC 34.2 (32.2-35.5) g/dl RDW Std Deviation 41.0 (36.4-46.3) fL Plt Count 222 (182-369) K/mm3 MPV 10.8 (9.4-12.3) fl Neut % (Auto) 51.0 (34.0-71.1) % Lymph % (Auto) 34.1 (19.3-51.7) % Henry % (Auto) 12.2 (4.7-12.5) % Eos % (Auto) 1.2 (0.7-5.8) Baso % (Auto) 0.5 (0.1-1.2) % Neut # 2.05 (1.56-6.13) K/mm3 Lymph # 1.37 (1.18-3.74) K/mm3 Henry # 0.49 H (0.24-0.36) K/mm3 Eos # 0.05 (0.04-0.36) K/mm3 Baso # 0.02 (0.01-0.08) K/mm3 Manual Slide Review POC Glucose 227 H (80-115) mg/dL TSH 3rd Generation (0.358-3.74) uIU/mL BRIEN Results - Last 24 hrs: Microbiology 06/29/16 10:10 Aerobic Blood Culture - Preliminary Blood - Venous - Lab Draw NO GROWTH AFTER 1 DAY Anaerobic Blood Culture - Preliminary NO GROWTH AFTER 1 DAY 06/29/16 09:40 Aerobic Blood Culture - Preliminary Blood - Venous NO GROWTH AFTER 1 DAY Anaerobic Blood Culture - Preliminary NO GROWTH AFTER 1 DAY Med Orders - Current: Current Medications Albuterol (Proventil Neb Soln) 1.25 mg NEB Q4H PRN PRN Reason: Shortness of Breath Albuterol/Ipratropium (Duoneb 3.0-0.5 Mg/3 Ml) 3 ml NEB QID PRN PRN Reason: Shortness of Breath Last Admin: 06/28/16 09:17 Dose: 3 ml Aspirin (Aspirin) 81 mg PO BEDTIME [facility] Last Admin: 06/30/16 21:17 Dose: Not Given Enoxaparin Sodium (Lovenox) 40 mg SUBCUT DAILY [facility] Last Admin: 06/30/16 10:35 Dose: 40 mg Azithromycin 500 mg/ Sodium (Chloride) 250 mls @ 250 mls/hr IV Q24H [facility] Last Admin: 06/30/16 10:34 Dose: 250 mls/hr Ceftriaxone Sodium 1 gm/ (Sodium Chloride) 100 mls @ 200 mls/hr IV Q24H [facility] Last Admin: 06/30/16 16:20 Dose: 200 mls/hr Insulin Aspart (Novolog) 0 unit SUBCUT QIDACANDBED [facility] PRN Reason: Protocol Last Admin: 06/30/16 21:19 Dose: 8 units Lisinopril (Prinivil) 2.5 mg PO DAILY [facility] Last Admin: 06/30/16 16:29 Dose: Not Given Magnesium Oxide (Magnesium Oxide) 400 mg PO BID [facility] Last Admin: 06/30/16 21:17 Dose: Not Given Metformin HCl (Glucophage) 500 mg PO BIDMEALS [facility] Last Admin: 07/01/16 06:42 Dose: 500 mg Ondansetron HCl (Zofran) 4 mg IVPUSH Q8H PRN PRN Reason: Nausea/Vomiting Last Admin: 06/28/16 12:42 Dose: 4 mg Simvastatin (Zocor) 10 mg PO BEDTIME [facility] Last Admin: 06/30/16 21:17 Dose: Not Given Discontinued Medications Famotidine (Pepcid) 20 mg IVPUSH ONETIME ONE Stop: 06/30/16 10:36 Last Admin: 06/30/16 16:29 Dose: Not Given Famotidine (Pepcid) 20 mg IVPUSH ONETIME ONE Stop: 06/30/16 15:31 Last Admin: 06/30/16 16:20 Dose: 20 mg Dextrose/Sodium Chloride (Dextrose 5%-Normal Saline) 1,000 mls @ 999 mls/hr IV ASDIRECTED [facility] Last Admin: 06/27/16 10:06 Dose: 999 mls/hr Sodium Chloride (Normal Saline) 1,000 mls @ 500 mls/hr IV ASDIRECTED [facility] Last Admin: 06/27/16 11:55 Dose: 500 mls/hr Levofloxacin/Dextrose 750 mg/ (Premix) 150 mls @ 100 mls/hr IV ONETIME ONE Stop: 06/27/16 13:09 Last Admin: 06/27/16 11:55 Dose: 100 mls/hr Sodium Chloride (Normal Saline) 1,000 mls @ 999 mls/hr IV ONETIME [facility] Stop: 06/28/16 16:19 Last Admin: 06/27/16 16:46 Dose: 999 mls/hr Magnesium Sulfate 2 gm/ Premix 50 mls @ 25 mls/hr IV ONETIME ONE Stop: 06/27/16 21:33 Last Admin: 06/27/16 20:16 Dose: 25 mls/hr Magnesium Sulfate 2 gm/ Premix 50 mls @ 25 mls/hr IV ONETIME ONE Stop: 06/29/16 22:59 Last Admin: 06/29/16 20:30 Dose: 25 mls/hr Insulin Human Regular (Humulin R) 8 unit SUBCUT ONETIME ONE PRN Reason: Protocol Stop: 06/27/16 13:02 Last Admin: 06/27/16 13:24 Dose: 8 unit Ondansetron HCl (Zofran) 4 mg IVPUSH ONETIME ONE Stop: 06/27/16 09:39 Last Admin: 06/27/16 10:06 Dose: 4 mg Potassium Chloride (Potassium Chloride Solution) 60 meq PO BID [facility] Stop: 06/28/16 21:01 Last Admin: 06/28/16 21:15 Dose: 60 meq - Exam Quality Assessment: Reports: DVT prophylaxis General: Reports: alert, oriented, cooperative, no acute distress HEENT: Reports: Pupils equal, Pupils reactive, EOMI, Mucous membr. moist/pink Neck: Reports: supple Lungs: Reports: Clear to auscultation, Normal respiratory effort Cardiovascular: Reports: regular rate, regular rhythm Abdomen: Reports: bowel sounds present, soft, no tenderness, no distension (Female) Exam: Deferred Rectal (Female) Exam: Deferred Back Exam: Reports: normal inspection Extremities: Reports: edema (trace to ankles; much improved from admit) Skin: Reports: warm, dry, intact Neurological: Reports: no new focal deficit Psy/Mental Status: Reports: alert, normal affect, normal mood *Q Meaningful Use (DIS) - VTE *Q VTE Criteria *Q: - Stroke *Q Stroke Criteria *Q: - AMI *Q AMI Criteria *Q: <Marley Alvarez - Last Filed: 07/01/16 19:40> Discharge Summary - Hospital Course Free Text/Narrative:: Follow up with new PCP, has not had regular PCP visits; will see Dr Pride. Has also been enrolled in Diabetic program at [facility]. Has been started on Metformin; should alos be seen by DM educatorCammy. - Discharge Diagnosis/Problem(s) (1) Bronchitis SNOMED Code(s): 51173636 ICD Code: J40 - BRONCHITIS, NOT SPECIFIED ACUTE OR CHRONIC Status: Acute Priority: High (2) Diarrhea SNOMED Code(s): 20557253 ICD Code: R19.7 - DIARRHEA, UNSPECIFIED Status: Acute Priority: High Qualifiers: Diarrhea type: functional diarrhea Qualified Code(s): K59.1 - Functional diarrhea (3) Hypomagnesemia SNOMED Code(s): 399476536 ICD Code: E83.42 - HYPOMAGNESEMIA Status: Acute Priority: High (4) Intractable nausea and vomiting SNOMED Code(s): 169140673, 186127731 ICD Code: R11.2 - NAUSEA WITH VOMITING, UNSPECIFIED Status: Acute Priority: High Qualifiers: Vomiting type: unspecified Qualified Code(s): R11.2 - Nausea with vomiting , unspecified (5) Metabolic acidosis SNOMED Code(s): 86096780 ICD Code: E87.2 - ACIDOSIS Status: Resolved Priority: High (6) New onset type 2 diabetes mellitus SNOMED Code(s): 03725109 ICD Code: E11.9 - TYPE 2 DIABETES MELLITUS WITHOUT COMPLICATIONS Status: Acute Priority: High - Patient Summary/Data Consults: Consultations 06/27/16 15:08 Consult to Market Investigator [Consult to Diabetic Nurse Specialist] [CONS] Routine - Patient Data Vitals - Most Recent: Last Vital Signs Temp 36.7 C 07/01/16 08:00 Pulse 95 07/01/16 08:00 Resp 18 07/01/16 08:00 BP 141/66 H 07/01/16 09:33 Pulse Ox 97 07/01/16 08:00 I&O - Last 24 hours: Intake & Output 07/01/16 07/01/16 07/01/16 06:59 14:59 22:59 Intake Total 500 210 Output Total 1150 Balance -650 210 Lab Results - Last 24 hrs: Laboratory Results - last 24 hr 06/28/16 06/30/16 07/01/16 Range/Units 05:48 21:18 06:25 WBC 4.02 (3.98-10.04) K/mm3 RBC 4.83 (3.98-5.22) M/mm3 Hgb 14.8 (11.2-15.7) gm/L Hct 43.3 (34.1-44.9) % MCV 89.6 (79.4-94.8) fl MCH 30.6 (25.6-32.2) pg MCHC 34.2 (32.2-35.5) g/dl RDW Std Deviation 41.0 (36.4-46.3) fL Plt Count 222 (182-369) K/mm3 MPV 10.8 (9.4-12.3) fl Neut % (Auto) 51.0 (34.0-71.1) % Lymph % (Auto) 34.1 (19.3-51.7) % Henry % (Auto) 12.2 (4.7-12.5) % Eos % (Auto) 1.2 (0.7-5.8) Baso % (Auto) 0.5 (0.1-1.2) % Neut # 2.05 (1.56-6.13) K/mm3 Lymph # 1.37 (1.18-3.74) K/mm3 Henry # 0.49 H (0.24-0.36) K/mm3 Eos # 0.05 (0.04-0.36) K/mm3 Baso # 0.02 (0.01-0.08) K/mm3 Manual Slide Review Abnormal smear Sodium (136-145) mEq/L Potassium (3.5-5.1) mEq/L Chloride (98-107) mEq/L Carbon Dioxide (21-32) mEq/L Anion Gap (5-15) BUN (7-18) mg/dL Creatinine (0.55-1.02) mg/dL Est Cr Clr Drug Dosing mL/min Estimated GFR (MDRD) (>60) mL/min BUN/Creatinine Ratio (14-18) Glucose (80-115) mg/dL POC Glucose 228 H 333 H (80-115) mg/dL Calcium (8.5-10.1) mg/dL 07/01/16 07/01/16 Range/Units 06:25 06:42 WBC (3.98-10.04) K/mm3 RBC (3.98-5.22) M/mm3 Hgb (11.2-15.7) gm/L Hct (34.1-44.9) % MCV (79.4-94.8) fl MCH (25.6-32.2) pg MCHC (32.2-35.5) g/dl RDW Std Deviation (36.4-46.3) fL Plt Count (182-369) K/mm3 MPV (9.4-12.3) fl Neut % (Auto) (34.0-71.1) % Lymph % (Auto) (19.3-51.7) % Henry % (Auto) (4.7-12.5) % Eos % (Auto) (0.7-5.8) Baso % (Auto) (0.1-1.2) % Neut # (1.56-6.13) K/mm3 Lymph # (1.18-3.74) K/mm3 Henry # (0.24-0.36) K/mm3 Eos # (0.04-0.36) K/mm3 Baso # (0.01-0.08) K/mm3 Manual Slide Review Sodium 140 (136-145) mEq/L Potassium 3.9 (3.5-5.1) mEq/L Chloride 104 (98-107) mEq/L Carbon Dioxide 28 (21-32) mEq/L Anion Gap 11.9 (5-15) BUN 4 L (7-18) mg/dL Creatinine 0.4 L (0.55-1.02) mg/dL Est Cr Clr Drug Dosing 109.42 mL/min Estimated GFR (MDRD) > 60 (>60) mL/min BUN/Creatinine Ratio 10.0 L (14-18) Glucose 246 H (80-115) mg/dL POC Glucose 227 H (80-115) mg/dL Calcium 9.3 (8.5-10.1) mg/dL BRIEN Results - Last 24 hrs: Microbiology 06/29/16 10:10 Aerobic Blood Culture - Preliminary Blood - Venous - Lab Draw NO GROWTH AFTER 2 DAYS Anaerobic Blood Culture - Preliminary NO GROWTH AFTER 2 DAYS 06/29/16 09:40 Aerobic Blood Culture - Preliminary Blood - Venous NO GROWTH AFTER 2 DAYS Anaerobic Blood Culture - Preliminary NO GROWTH AFTER 2 DAYS Med Orders - Current: Current Medications Discontinued Medications Albuterol (Proventil Neb Soln) 1.25 mg NEB Q4H PRN PRN Reason: Shortness of Breath Albuterol/Ipratropium (Duoneb 3.0-0.5 Mg/3 Ml) 3 ml NEB QID PRN PRN Reason: Shortness of Breath Last Admin: 06/28/16 09:17 Dose: 3 ml Aspirin (Aspirin) 81 mg PO BEDTIME [facility] Last Admin: 06/30/16 21:17 Dose: Not Given Enoxaparin Sodium (Lovenox) 40 mg SUBCUT DAILY [facility] Last Admin: 07/01/16 09:32 Dose: 40 mg Famotidine (Pepcid) 20 mg IVPUSH ONETIME ONE Stop: 06/30/16 10:36 Last Admin: 06/30/16 16:29 Dose: Not Given Famotidine (Pepcid) 20 mg IVPUSH ONETIME ONE Stop: 06/30/16 15:31 Last Admin: 06/30/16 16:20 Dose: 20 mg Dextrose/Sodium Chloride (Dextrose 5%-Normal Saline) 1,000 mls @ 999 mls/hr IV ASDIRECTED [facility] Last Admin: 06/27/16 10:06 Dose: 999 mls/hr Sodium Chloride (Normal Saline) 1,000 mls @ 500 mls/hr IV ASDIRECTED [facility] Last Admin: 06/27/16 11:55 Dose: 500 mls/hr Levofloxacin/Dextrose 750 mg/ (Premix) 150 mls @ 100 mls/hr IV ONETIME ONE Stop: 06/27/16 13:09 Last Admin: 06/27/16 11:55 Dose: 100 mls/hr Azithromycin 500 mg/ Sodium (Chloride) 250 mls @ 250 mls/hr IV Q24H [facility] Last Admin: 07/01/16 09:33 Dose: 250 mls/hr Sodium Chloride (Normal Saline) 1,000 mls @ 999 mls/hr IV ONETIME [facility] Stop: 06/28/16 16:19 Last Admin: 06/27/16 16:46 Dose: 999 mls/hr Ceftriaxone Sodium 1 gm/ (Sodium Chloride) 100 mls @ 200 mls/hr IV Q24H [facility] Last Admin: 06/30/16 16:20 Dose: 200 mls/hr Magnesium Sulfate 2 gm/ Premix 50 mls @ 25 mls/hr IV ONETIME ONE Stop: 06/27/16 21:33 Last Admin: 06/27/16 20:16 Dose: 25 mls/hr Magnesium Sulfate 2 gm/ Premix 50 mls @ 25 mls/hr IV ONETIME ONE Stop: 06/29/16 22:59 Last Admin: 06/29/16 20:30 Dose: 25 mls/hr Insulin Aspart (Novolog) 0 unit SUBCUT QIDACANDBED [facility] PRN Reason: Protocol Last Admin: 07/01/16 07:49 Dose: 4 units Insulin Human Regular (Humulin R) 8 unit SUBCUT ONETIME ONE PRN Reason: Protocol Stop: 06/27/16 13:02 Last Admin: 06/27/16 13:24 Dose: 8 unit Lisinopril (Prinivil) 2.5 mg PO DAILY [facility] Last Admin: 07/01/16 09:33 Dose: 2.5 mg Magnesium Oxide (Magnesium Oxide) 400 mg PO BID [facility] Last Admin: 07/01/16 09:33 Dose: 400 mg Metformin HCl (Glucophage) 500 mg PO BIDMEALS [facility] Last Admin: 07/01/16 06:42 Dose: 500 mg Metformin HCl (Glucophage) 500 mg PO DAILY [facility] Ondansetron HCl (Zofran) 4 mg IVPUSH ONETIME ONE Stop: 06/27/16 09:39 Last Admin: 06/27/16 10:06 Dose: 4 mg Ondansetron HCl (Zofran) 4 mg IVPUSH Q8H PRN PRN Reason: Nausea/Vomiting Last Admin: 06/28/16 12:42 Dose: 4 mg Potassium Chloride (Potassium Chloride Solution) 60 meq PO BID [facility] Stop: 06/28/16 21:01 Last Admin: 06/28/16 21:15 Dose: 60 meq Simvastatin (Zocor) 10 mg PO BEDTIME [facility] Last Admin: 06/30/16 21:17 Dose: Not Given *Q Meaningful Use (DIS) - VTE *Q VTE Criteria *Q: - Stroke *Q Stroke Criteria *Q: - AMI *Q AMI Criteria *Q:
[2016-07-01] MEDS: Insulin Aspart 100 Units/ML 3 ML Pen SUBCUT SCH (07:49)
[2016-07-01 08:02] VITALS: BP 141/66
[2016-07-01] MEDS: Enoxaparin 40 MG/0.4 ML Syringe SUBCUT SCH (09:32)
[2016-07-01] MEDS: Lisinopril 2.5 MG Tab PO SCH (09:33)
[2016-07-01] MEDS: Magnesium Oxide 400 MG Tab PO SCH (09:33)
[2016-07-01] MEDS: Azithromycin 500 MG in Sodium Chloride 0.9% 250 ML IV SCH (09:33)
[2016-07-02] MEDS ORDERED: metFORMIN 500 MG Tab PO SCH (09:00)
== END 2016-07-01 11:07 | disposition home or self-care (01) | DRG 392 ==
LOC: JD.ED 09:10 → JD.MS 13:10
PROVIDERS: ADMIT Internal Medicine Cardiovascular Disease; ATTEND Internal Medicine Cardiovascular Disease
DX: R11.2 Nausea with vomiting, unspecified (principal); E87.2 Acidosis; E11.65 Type 2 diabetes mellitus with hyperglycemia; J40 Bronchitis, not specified as acute or chronic; E83.42 Hypomagnesemia; E86.0 Dehydration; K59.1 Functional diarrhea; E87.6 Hypokalemia
CPT/HCPCS: 36415; 71010; 71010-26; 71020; 71020-26; 80048; 80053; 80061; 81001; 82009; 82553; 82962; 83036; 83605; 83735; 84443; 84484; 85025; 85610; 86140; 86738; 87040; 87338; 87425; 87804; 87899; 89055; 93005; 94640-76; 94664; 94760; 96361; 96365; 96366; 96372; 96375; 99232; 99239; 99285; 99285-25; A9270-GY; J0456; J0696; J1650; J1815-GY; J1817; J1956; J2405; J3475; J7030; J7040; J7042; J7050

== ENCOUNTER 2021-05-08 08:18 | Emergency (ER) | payer SELFPAY ==
[2021-05-08] MEDS ORDERED: Sodium Chloride 0.9% 10 ML Syringe FLUSH PRN (08:41)
[2021-05-08 09:25] LABS: CORONAVIRUS COVID-19 NAA NEGATIVE (NEGATIVE)
[2021-05-08 10:46] VITALS: BP 125/75; PULSE 80
== END 2021-05-08 10:44 | disposition home or self-care (01) ==
LOC: JD.ED 08:18
DX: J98.8 Other specified respiratory disorders (principal); E11.40 Type 2 diabetes mellitus with diabetic neuropathy, unspecified; Z79.84 Long term (current) use of oral hypoglycemic drugs; Z20.822 Contact with and (suspected) exposure to COVID-19
CPT/HCPCS: 0241U; 36415; 71045; 80053; 83880; 84484; 85025; 85379; 86140; 93005; 99285; 93010; 99284

== ENCOUNTER 2023-05-30 07:59 | Emergency (ER) | payer SELFPAY ==
[2023-05-30 08:11] VITALS: PULSE 89
[2023-05-30] MEDS: Sodium Chloride 0.9% 1,000 ML IV SCH (08:58)
[2023-05-30] MEDS: Sodium Chloride 0.9% 10 ML Syringe FLUSH PRN (08:58)
[2023-05-30] MEDS: Labetalol 100 MG/20 ML MDV IVPUSH ONE (08:58)
[2023-05-30 09:00] LABS: BASOPHILS PERCENT AUTO 0.5 % (0.0-1.0); EOSINOPHILS ABSOLUTE AUTO 0.1 K/mm3 (0.0-0.4); EOSINOPHILS PERCENT AUTO 1.5 % (0.0-6.0); HEMATOCRIT 40.6 % (37.0-47.0); HEMOGLOBIN 13.7 gm/dl (12.0-16.0); IMMATURE GRAN ABSOLUTE AUTO 0.03 K/mm3 (0.00-0.05); IMMATURE GRAN PERCENT AUTO 0.5 % (0.0-0.4); LYMPHOCYTES ABSOLUTE AUTO 1.3 K/mm3 (1.0-4.8); LYMPHOCYTES PERCENT AUTO 21.8 % (24.0-44.0); MEAN CORPUSCULAR HEMOGLOBIN 30.2 pg (28.0-32.0); MEAN CORPUSCULAR HGB CONC 33.7 g/dl (32.0-36.0); MEAN CORPUSCULAR VOLUME 89.4 fl (83.0-99.0); MEAN PLATELET VOLUME 9.7 fl (9.4-12.3); MONOCYTES ABSOLUTE AUTO 0.4 K/mm3 (0.0-0.8); MONOCYTES PERCENT AUTO 6.6 % (0.0-8.0); NEUTROPHILS ABSOLUTE AUTO 4.2 K/mm3 (1.8-7.7); NEUTROPHILS PERCENT AUTO 69.1 % (41.0-71.0); PLATELET COUNT,PLT 279 K/mm3 (150-400); RED BLOOD CELL COUNT 4.54 M/mm3 (4.10-5.30)
[2023-05-30] MEDS: Ondansetron 4 MG/2 ML SDV IVPUSH ONE (09:06)
[2023-05-30 09:22] LABS: ALBUMIN 3.6 g/dl (3.4-5.0); ANION GAP 14.1 (5-15); BILIRUBIN TOTAL 1.3 mg/dL (0.2-1.0); CALCIUM 9.1 mg/dL (8.5-10.1); CREATININE 0.8 mg/dL (0.55-1.02); EST CRCL DRUG DOSING (CG) 49.53 mL/min; POTASSIUM,K 4.1 mEq/L (3.5-5.1); PROTEIN TOTAL,TP 7.2 g/dl (6.4-8.2)
[2023-05-30 09:47] LABS: CORONAVIRUS COVID-19 NAA NEGATIVE (NEGATIVE); INFLUENZA A NAA NEGATIVE (NEGATIVE); RESPIRATORY SYNCYTIAL VIR NAA NEGATIVE (NEGATIVE)
[2023-05-30 10:33] VITALS: BP 167/78
== END 2023-05-30 10:25 | disposition home or self-care (01) ==
LOC: JD.ED 07:59
DX: J18.9 Pneumonia, unspecified organism (principal); I10 Essential (primary) hypertension; E11.40 Type 2 diabetes mellitus with diabetic neuropathy, unspecified; Z86.16 Personal history of COVID-19; Z79.84 Long term (current) use of oral hypoglycemic drugs; Z79.899 Other long term (current) drug therapy
CPT/HCPCS: 0241U; 36415; 70450; 71045; 80053; 84484; 85025; 93005; 96361; 96374; 96375; 99285; J1921; J2405; J3490; J7030; 93010; 99284

== ENCOUNTER 2024-04-05 07:33 | Emergency (ER) | payer SELFPAY ==
[2024-04-05] MEDS ORDERED: Sodium Chloride 0.9% 10 ML Syringe FLUSH PRN (08:00)
[2024-04-05 08:24] LABS: APPEARANCE,URINE CLEAR (Clear); BILIRUBIN,URINE 2+ (Negative); COLOR,URINE YELLOW (Yellow); GLUCOSE,URINE 2+ (Negative); KETONES,URINE 4+ (Negative); LEUKOCYTE ESTERASE,URINE NEGATIVE (Negative); NITRITE,URINE NEGATIVE (Negative); OCCULT BLOOD,URINE NEGATIVE (Negative); PH,URINE 5.5 (5.0-8.0); PROTEIN,URINE 3+ (Negative)
[2024-04-05] MEDS: Sodium Chloride 0.9% 1,000 ML IV SCH (08:30)
[2024-04-05 08:31] LABS: BACTERIA,URINE FEW /hpf (FEW); MUCUS,URINE MODERATE /hpf (FEW)
[2024-04-05] MEDS: Ondansetron 4 MG/2 ML SDV IVPUSH ONE (08:31)
[2024-04-05] MEDS: Meclizine 25 MG Tab PO ONE (08:33)
[2024-04-05 08:35] LABS: BASOPHILS PERCENT AUTO 0.5 % (0.0-1.0); EOSINOPHILS ABSOLUTE AUTO 0.1 K/mm3 (0.0-0.4); EOSINOPHILS PERCENT AUTO 1.6 % (0.0-6.0); HEMATOCRIT 39.6 % (37.0-47.0); IMMATURE GRAN ABSOLUTE AUTO 0.08 K/mm3 (0.00-0.05); LYMPHOCYTES ABSOLUTE AUTO 0.7 K/mm3 (1.0-4.8); LYMPHOCYTES PERCENT AUTO 8.3 % (24.0-44.0); MEAN CORPUSCULAR HEMOGLOBIN 29.5 pg (28.0-32.0); MEAN CORPUSCULAR HGB CONC 32.8 g/dl (32.0-36.0); MEAN CORPUSCULAR VOLUME 89.8 fl (83.0-99.0); MONOCYTES ABSOLUTE AUTO 0.8 K/mm3 (0.0-0.8); MONOCYTES PERCENT AUTO 9.1 % (0.0-8.0); NEUTROPHILS ABSOLUTE AUTO 6.6 K/mm3 (1.8-7.7); NEUTROPHILS PERCENT AUTO 79.5 % (41.0-71.0); PLATELET COUNT,PLT 230 K/mm3 (150-400); RED BLOOD CELL COUNT 4.41 M/mm3 (4.10-5.30); WHITE BLOOD CELL COUNT,WBC 8.28 K/mm3 (3.9-11.3)
[2024-04-05 08:56] LABS: HEMOGLOBIN A1C 12.2 %
[2024-04-05 08:59] LABS: A/G RATIO 0.7 (1-2); ALBUMIN 2.6 g/dl (3.4-5.0); ANION GAP 22.5 (5-15); BILIRUBIN TOTAL 0.9 mg/dL (0.2-1.0); BUN/CREATININE RATIO 22.9 (14-18); CALCIUM 9.1 mg/dL (8.5-10.1); CREATININE 0.7 mg/dL (0.55-1.02); EST CRCL DRUG DOSING (CG) 55.77 mL/min; MAGNESIUM 1.2 mg/dL (1.8-2.4); POTASSIUM,K 3.5 mEq/L (3.5-5.1); PROTEIN TOTAL,TP 6.2 g/dl (6.4-8.2)
[2024-04-05] MEDS: Magnesium Sulfate/Water Premix 2 GM/50 ML BAG IV ONE (09:51)
[2024-04-05 10:37] LABS: O2 SATURATION VENOUS 55.4; PCO2 VENOUS 44.6 mmHg (41-51); PH,VENOUS 7.37 (7.30-7.40)
[2024-04-05 10:38] LABS: BASE EXCESS VENOUS 0.3 (-4.0-2.0); BICARBONATE,VENOUS 25.3 meq/L (22-26)
[2024-04-05] MEDS: Insulin Glargine,Human Rec. Analog 100 Units/ML 3 ML Pen SUBCUT ONE (11:24)
[2024-04-05 18:03] VITALS: BP 152/85; PULSE 95
== END 2024-04-05 12:00 | disposition home or self-care (01) ==
LOC: JD.ED 07:33
DX: E11.65 Type 2 diabetes mellitus with hyperglycemia (principal); E83.42 Hypomagnesemia; Z79.4 Long term (current) use of insulin; I10 Essential (primary) hypertension; Z86.16 Personal history of COVID-19; Z79.899 Other long term (current) drug therapy
CPT/HCPCS: 36415; 70450; 80053; 81001; 82803; 82947; 83036; 83735; 83930; 84484; 85025; 93005; 96361; 96365; 96366; 96375; 99285; A9270; J1815; J2405; J3475; J7030

== ENCOUNTER 2024-04-07 15:26 | Emergency (ER) | payer SELFPAY ==
[2024-04-07 16:09] LABS: BASOPHILS PERCENT AUTO 0.5 % (0.0-1.0); EOSINOPHILS ABSOLUTE AUTO 0.1 K/mm3 (0.0-0.4); EOSINOPHILS PERCENT AUTO 1.6 % (0.0-6.0); HEMATOCRIT 38.2 % (37.0-47.0); HEMOGLOBIN 12.6 gm/dl (12.0-16.0); IMMATURE GRAN ABSOLUTE AUTO 0.09 K/mm3 (0.00-0.05); LYMPHOCYTES ABSOLUTE AUTO 0.8 K/mm3 (1.0-4.8); LYMPHOCYTES PERCENT AUTO 8.9 % (24.0-44.0); MEAN CORPUSCULAR VOLUME 87.8 fl (83.0-99.0); MEAN PLATELET VOLUME 9.7 fl (9.4-12.3); NEUTROPHILS ABSOLUTE AUTO 6.7 K/mm3 (1.8-7.7); PLATELET COUNT,PLT 233 K/mm3 (150-400); RED BLOOD CELL COUNT 4.35 M/mm3 (4.10-5.30)
[2024-04-07 16:30] LABS: A/G RATIO 0.8 (1-2); ALBUMIN 2.6 g/dl (3.4-5.0); ANION GAP 13.2 (5-15); CALCIUM 8.8 mg/dL (8.5-10.1); CREATININE 0.5 mg/dL (0.55-1.02); EST CRCL DRUG DOSING (CG) 78.07 mL/min; POTASSIUM,K 3.2 mEq/L (3.5-5.1)
[2024-04-07] MEDS: Sodium Chloride 0.9% 10 ML Syringe FLUSH PRN (17:11)
[2024-04-07] MEDS: Sodium Chloride 0.9% 1,000 ML IV STA (17:11)
[2024-04-07] MEDS: Magnesium Sulfate/Water Premix 2 GM/50 ML BAG IV ONE (17:17)
[2024-04-07] MEDS: Insulin Regular, Human 100 Units/ML 10 ML Vial SUBCUT ONE (17:59)
[2024-04-07] MEDS: Insulin Glargine,Human Rec. Analog 100 Units/ML 3 ML Pen SUBCUT ONE (19:09)
[2024-04-07 19:42] VITALS: BP 135/85; PULSE 85
== END 2024-04-07 19:43 | disposition home or self-care (01) ==
LOC: JD.ED 15:26
DX: E11.65 Type 2 diabetes mellitus with hyperglycemia (principal); E83.42 Hypomagnesemia; I10 Essential (primary) hypertension; Z86.16 Personal history of COVID-19; Z90.89 Acquired absence of other organs; Z79.4 Long term (current) use of insulin; Z79.84 Long term (current) use of oral hypoglycemic drugs; Z79.51 Long term (current) use of inhaled steroids; Z79.899 Other long term (current) drug therapy
CPT/HCPCS: 36415; 80053; 82947; 83735; 85025; 96365; 96366; 99284; J1815; J3475; J7030

== ENCOUNTER 2024-04-15 08:14 | Emergency (ER) | payer SELFPAY ==
[2024-04-15 09:33] LABS: BASOPHILS PERCENT AUTO 0.3 % (0.0-1.0); EOSINOPHILS ABSOLUTE AUTO 0.2 K/mm3 (0.0-0.4); EOSINOPHILS PERCENT AUTO 1.6 % (0.0-6.0); HEMOGLOBIN 12.2 gm/dl (12.0-16.0); IMMATURE GRAN ABSOLUTE AUTO 0.13 K/mm3 (0.00-0.05); IMMATURE GRAN PERCENT AUTO 1.2 % (0.0-0.4); LYMPHOCYTES ABSOLUTE AUTO 0.7 K/mm3 (1.0-4.8); LYMPHOCYTES PERCENT AUTO 6.7 % (24.0-44.0); MEAN CORPUSCULAR HEMOGLOBIN 28.4 pg (28.0-32.0); MEAN CORPUSCULAR HGB CONC 32.1 g/dl (32.0-36.0); MEAN CORPUSCULAR VOLUME 88.6 fl (83.0-99.0); MEAN PLATELET VOLUME 10.5 fl (9.4-12.3); MONOCYTES PERCENT AUTO 8.9 % (0.0-8.0); NEUTROPHILS ABSOLUTE AUTO 8.7 K/mm3 (1.8-7.7); NEUTROPHILS PERCENT AUTO 81.3 % (41.0-71.0); PLATELET COUNT,PLT 278 K/mm3 (150-400); RED BLOOD CELL COUNT 4.29 M/mm3 (4.10-5.30); WHITE BLOOD CELL COUNT,WBC 10.64 K/mm3 (3.9-11.3)
[2024-04-15 10:46] LABS: A/G RATIO 0.7 (1-2); ALANINE AMINOTRANSFERASE,ALT 18 U/L (14-59); ALBUMIN 2.4 g/dl (3.4-5.0); ALKALINE PHOSPHATASE 215 U/L (46-116); ASPARTATE AMNIOTRANSFERASE,AST 27 U/L (15-37); BLOOD UREA NITROGEN,BUN 20 mg/dL (7-18); CALCIUM 9.2 mg/dL (8.5-10.1); CARBON DIOXIDE,CO2 31 mEq/L (21-32); CHLORIDE,CL 97 mEq/L (98-107); CREATININE 0.5 mg/dL (0.55-1.02); ESTIMATED GFR 98 mL/min (>60); GLUCOSE RANDOM 172 mg/dL (70-99); MAGNESIUM 1.3 mg/dL (1.8-2.4); PROTEIN TOTAL,TP 6.1 g/dl (6.4-8.2); SODIUM,NA 137 mEq/L (136-145)
[2024-04-15] MEDS: Magnesium Sulfate/Water Premix 2 GM/50 ML BAG IV ONE (12:55)
[2024-04-15] MEDS: Sodium Chloride 0.9% 500 ML IV ONE (12:55)
[2024-04-15] MEDS: Potassium Chloride 10 MEQ in Premix Bag 1 BAG IV SCH (12:55)
[2024-04-15] MEDS: Magnesium Oxide 400 MG Tab PO ONE (12:55)
[2024-04-15] MEDS: Potassium Chloride 20 MEQ Tab.ER PO ONE (12:56)
[2024-04-15] MEDS: Sodium Chloride 0.9% 10 ML Syringe FLUSH PRN (13:23)
[2024-04-15] MEDS: Furosemide 20 MG Tab PO ONE (16:00)
[2024-04-15 16:19] VITALS: BP 160/78; PULSE 78
== END 2024-04-15 16:20 | disposition home or self-care (01) ==
LOC: JD.ED 08:14
DX: I11.0 Hypertensive heart disease with heart failure (principal); I50.9 Heart failure, unspecified; E11.65 Type 2 diabetes mellitus with hyperglycemia; E83.42 Hypomagnesemia; E87.6 Hypokalemia; Z86.16 Personal history of COVID-19; Z90.89 Acquired absence of other organs; Z79.4 Long term (current) use of insulin; Z79.84 Long term (current) use of oral hypoglycemic drugs; Z79.51 Long term (current) use of inhaled steroids; Z79.899 Other long term (current) drug therapy
CPT/HCPCS: 36415; 71101; 80053; 83735; 83880; 85025; 93005; 93970; 96365; 96366; 96368; 99284; A9270; J3475; J3480; J7040

== ENCOUNTER 2024-04-22 11:55 | Emergency (ER) | payer SELFPAY ==
[2024-04-22] MEDS ORDERED: Sodium Chloride 0.9% 10 ML Syringe FLUSH PRN (13:22)
[2024-04-22 13:34] LABS: BASOPHILS PERCENT AUTO 0.2 % (0.0-1.0); EOSINOPHILS ABSOLUTE AUTO 0.4 K/mm3 (0.0-0.4); EOSINOPHILS PERCENT AUTO 2.6 % (0.0-6.0); HEMATOCRIT 39.5 % (37.0-47.0); HEMOGLOBIN 12.7 gm/dl (12.0-16.0); IMMATURE GRAN ABSOLUTE AUTO 0.16 K/mm3 (0.00-0.05); IMMATURE GRAN PERCENT AUTO 1.2 % (0.0-0.4); LYMPHOCYTES PERCENT AUTO 7.4 % (24.0-44.0); MEAN CORPUSCULAR HEMOGLOBIN 28.9 pg (28.0-32.0); MEAN CORPUSCULAR HGB CONC 32.2 g/dl (32.0-36.0); MEAN PLATELET VOLUME 10.6 fl (9.4-12.3); MONOCYTES ABSOLUTE AUTO 1.3 K/mm3 (0.0-0.8); MONOCYTES PERCENT AUTO 9.4 % (0.0-8.0); NEUTROPHILS ABSOLUTE AUTO 10.9 K/mm3 (1.8-7.7); NEUTROPHILS PERCENT AUTO 79.2 % (41.0-71.0); PLATELET COUNT,PLT 279 K/mm3 (150-400); RED BLOOD CELL COUNT 4.39 M/mm3 (4.10-5.30); WHITE BLOOD CELL COUNT,WBC 13.78 K/mm3 (3.9-11.3)
[2024-04-22 13:50] LABS: A/G RATIO 0.6 (1-2); ALBUMIN 2.4 g/dl (3.4-5.0); ANION GAP 11.7 (5-15); BILIRUBIN TOTAL 1.4 mg/dL (0.2-1.0); CREATININE 0.6 mg/dL (0.55-1.02); EST CRCL DRUG DOSING (CG) 65.06 mL/min; MAGNESIUM 1.5 mg/dL (1.8-2.4); POTASSIUM,K 3.7 mEq/L (3.5-5.1); PROTEIN TOTAL,TP 6.4 g/dl (6.4-8.2)
[2024-04-22] MEDS: Furosemide 40 MG/4 ML VIAL IVPUSH ONE (14:45)
[2024-04-22 15:23] LABS: APPEARANCE,URINE CLEAR (Clear); BILIRUBIN,URINE NEGATIVE (Negative); COLOR,URINE YELLOW (Yellow); GLUCOSE,URINE NEGATIVE (Negative); KETONES,URINE NEGATIVE (Negative); LEUKOCYTE ESTERASE,URINE NEGATIVE (Negative); NITRITE,URINE NEGATIVE (Negative); OCCULT BLOOD,URINE NEGATIVE (Negative); PROTEIN,URINE 2+ (Negative)
[2024-04-22 15:55] LABS: BACTERIA,URINE FEW /hpf (FEW); MUCUS,URINE FEW /hpf (FEW); RBC,URINE 0-5 /hpf (0-5); SQUAMOUS EPITHELIAL CELLS,UR 0-5 /hpf (0-5); WBC,URINE 0-5 /hpf (0-5)
[2024-04-22 17:29] VITALS: BP 151/73; PULSE 106
== END 2024-04-22 17:40 | disposition home or self-care (01) ==
LOC: JD.ED 11:55
DX: I11.0 Hypertensive heart disease with heart failure (principal); I50.9 Heart failure, unspecified; E11.9 Type 2 diabetes mellitus without complications; Z86.16 Personal history of COVID-19; Z90.89 Acquired absence of other organs; Z79.4 Long term (current) use of insulin; Z79.84 Long term (current) use of oral hypoglycemic drugs; Z79.899 Other long term (current) drug therapy; Z91.199 Patient's noncompliance with other medical treatment and regimen due to unspecified reason
CPT/HCPCS: 36415; 71045; 80053; 81001; 82947; 83735; 83880; 84484; 85025; 87428; 93005; 96374; 99285; C1758; J1940

== ENCOUNTER 2024-05-05 14:37 | Inpatient (IN) | payer SELFPAY ==
[2024-05-05 17:11] LABS: BASOPHILS PERCENT AUTO 0.2 % (0.0-1.0); EOSINOPHILS ABSOLUTE AUTO 0.4 K/mm3 (0.0-0.4); EOSINOPHILS PERCENT AUTO 1.6 % (0.0-6.0); HEMOGLOBIN 14.1 gm/dl (12.0-16.0); IMMATURE GRAN ABSOLUTE AUTO 0.46 K/mm3 (0.00-0.05); IMMATURE GRAN PERCENT AUTO 1.9 % (0.0-0.4); LYMPHOCYTES ABSOLUTE AUTO 0.7 K/mm3 (1.0-4.8); LYMPHOCYTES PERCENT AUTO 2.8 % (24.0-44.0); MEAN CORPUSCULAR HEMOGLOBIN 29.1 pg (28.0-32.0); MEAN CORPUSCULAR VOLUME 90.9 fl (83.0-99.0); MEAN PLATELET VOLUME 10.8 fl (9.4-12.3); MONOCYTES ABSOLUTE AUTO 1.2 K/mm3 (0.0-0.8); NEUTROPHILS ABSOLUTE AUTO 21.7 K/mm3 (1.8-7.7); NEUTROPHILS PERCENT AUTO 88.5 % (41.0-71.0); PLATELET COUNT,PLT 205 K/mm3 (150-400); RED BLOOD CELL COUNT 4.84 M/mm3 (4.10-5.30); WHITE BLOOD CELL COUNT,WBC 24.48 K/mm3 (3.9-11.3)
[2024-05-05 17:30] LABS: INR 2.04; PROTHROMBIN TIME 20.6 SECONDS (9.7-12.0)
[2024-05-05 17:32] LABS: PTT,PARTIAL THROMBOPLSTIN TIME 31.3 SECONDS (21.7-31.4)
[2024-05-05 17:40] LABS: A/G RATIO 0.5 (1-2); ALANINE AMINOTRANSFERASE,ALT 37 U/L (14-59); ALBUMIN 1.9 g/dl (3.4-5.0); ALKALINE PHOSPHATASE 466 U/L (46-116); ANION GAP 20.6 (5-15); ASPARTATE AMNIOTRANSFERASE,AST 78 U/L (15-37); BLOOD UREA NITROGEN,BUN 81 mg/dL (7-18); BUN/CREATININE RATIO 57.9 (14-18); C-REACTIVE PROTEIN 8.33 mg/dL (<0.30); CALCIUM 8.1 mg/dL (8.5-10.1); CARBON DIOXIDE,CO2 20 mEq/L (21-32); CHLORIDE,CL 101 mEq/L (98-107); CREATININE 1.4 mg/dL (0.55-1.02); EST CRCL DRUG DOSING (CG) 27.88 mL/min; ESTIMATED GFR 39 mL/min (>60); GLUCOSE RANDOM 221 mg/dL (70-99); POTASSIUM,K 4.6 mEq/L (3.5-5.1); PROTEIN TOTAL,TP 5.6 g/dl (6.4-8.2); SODIUM,NA 137 mEq/L (136-145)
[2024-05-05 17:55] LABS: TROPONIN I HIGH SENSITIVITY < 4 pg/mL (<=51)
[2024-05-05 18:18] LABS: APPEARANCE,URINE CLEAR (Clear); BILIRUBIN,URINE 1+ (Negative); GLUCOSE,URINE NEGATIVE (Negative); KETONES,URINE NEGATIVE (Negative); LEUKOCYTE ESTERASE,URINE NEGATIVE (Negative); NITRITE,URINE NEGATIVE (Negative); OCCULT BLOOD,URINE NEGATIVE (Negative); PH,URINE 5.5 (5.0-8.0); PROTEIN,URINE NEGATIVE (Negative)
[2024-05-05 18:25] LABS: COLOR,URINE AMBER (Yellow)
[2024-05-05] MEDS: cefTRIAXone 2 GM in Water For Injection, Sterile 20 ML IV ONE (19:32)
[2024-05-05] MEDS: Heparin Sodium 5,000 Units/ML Vial SUBCUT SCH (22:19)
[2024-05-06] MEDS: Sodium Chloride 0.9% 1,000 ML IV ONE (02:56)
[2024-05-06] MEDS: cefTRIAXone 2 GM in Sodium Chloride 0.9% 100 ML IV ONE (03:05)
[2024-05-06 07:28] LABS: BASOPHILS PERCENT AUTO 0.2 % (0.0-1.0); EOSINOPHILS ABSOLUTE AUTO 0.5 K/mm3 (0.0-0.4); EOSINOPHILS PERCENT AUTO 2.1 % (0.0-6.0); HEMATOCRIT 41.7 % (37.0-47.0); HEMOGLOBIN 13.5 gm/dl (12.0-16.0); IMMATURE GRAN ABSOLUTE AUTO 0.39 K/mm3 (0.00-0.05); IMMATURE GRAN PERCENT AUTO 1.6 % (0.0-0.4); MEAN CORPUSCULAR HEMOGLOBIN 28.9 pg (28.0-32.0); MEAN CORPUSCULAR HGB CONC 32.4 g/dl (32.0-36.0); MEAN CORPUSCULAR VOLUME 89.3 fl (83.0-99.0); MEAN PLATELET VOLUME 10.7 fl (9.4-12.3); MONOCYTES ABSOLUTE AUTO 1.3 K/mm3 (0.0-0.8); MONOCYTES PERCENT AUTO 5.3 % (0.0-8.0); NEUTROPHILS PERCENT AUTO 86.8 % (41.0-71.0); PLATELET COUNT,PLT 156 K/mm3 (150-400); RED BLOOD CELL COUNT 4.67 M/mm3 (4.10-5.30); WHITE BLOOD CELL COUNT,WBC 24.24 K/mm3 (3.9-11.3)
[2024-05-06] MEDS ORDERED: Ondansetron 4 MG/2 ML SDV IV PRN (07:29)
[2024-05-06] MEDS ORDERED: Acetaminophen 325 MG Tab PO PRN (07:29)
[2024-05-06 08:29] LABS: A/G RATIO 0.5 (1-2); ALBUMIN 1.8 g/dl (3.4-5.0); ANION GAP 18.8 (5-15); BILIRUBIN TOTAL 2.6 mg/dL (0.2-1.0); BUN/CREATININE RATIO 61.9 (14-18); CREATININE 1.6 mg/dL (0.55-1.02); EST CRCL DRUG DOSING (CG) 24.4 mL/min; MAGNESIUM 2.3 mg/dL (1.8-2.4); PROTEIN TOTAL,TP 5.6 g/dl (6.4-8.2)
[2024-05-06 08:40] LABS: POTASSIUM,K 4.8 mEq/L (3.5-5.1)
[2024-05-06] MEDS: Furosemide 20 MG Tab PO SCH (09:24)
[2024-05-06] MEDS ORDERED: 50% Dextrose in Water 50 ML Syringe IVPUSH PRN (17:06)
[2024-05-06] MEDS: Insulin Lispro 100 Unit/ML 3 ML KwikPen SUBCUT SCH (17:22)
[2024-05-06] MEDS: cefTRIAXone 2 GM Vial IV SCH (17:23)
[2024-05-06] MEDS ORDERED: cefTRIAXone 2 GM in Sodium Chloride 0.9% 100 ML IV SCH (18:00)
[2024-05-06] MEDS ORDERED: traZODone 50 MG Tab PO SCH (21:00)
[2024-05-06] MEDS: traZODone 50 MG Tab PO SCH (21:23)
[2024-05-07 05:45] LABS: BASOPHILS PERCENT AUTO 0.2 % (0.0-1.0); EOSINOPHILS ABSOLUTE AUTO 0.6 K/mm3 (0.0-0.4); EOSINOPHILS PERCENT AUTO 2.3 % (0.0-6.0); HEMOGLOBIN 13.3 gm/dl (12.0-16.0); IMMATURE GRAN PERCENT AUTO 1.6 % (0.0-0.4); LYMPHOCYTES ABSOLUTE AUTO 1.1 K/mm3 (1.0-4.8); LYMPHOCYTES PERCENT AUTO 4.3 % (24.0-44.0); MEAN CORPUSCULAR HEMOGLOBIN 29.3 pg (28.0-32.0); MEAN CORPUSCULAR HGB CONC 33.3 g/dl (32.0-36.0); MEAN CORPUSCULAR VOLUME 88.1 fl (83.0-99.0); MEAN PLATELET VOLUME 10.8 fl (9.4-12.3); MONOCYTES PERCENT AUTO 4.1 % (0.0-8.0); NEUTROPHILS ABSOLUTE AUTO 21.6 K/mm3 (1.8-7.7); NEUTROPHILS PERCENT AUTO 87.5 % (41.0-71.0); PLATELET COUNT,PLT 173 K/mm3 (150-400); RED BLOOD CELL COUNT 4.54 M/mm3 (4.10-5.30); WHITE BLOOD CELL COUNT,WBC 24.65 K/mm3 (3.9-11.3)
[2024-05-07 06:04] LABS: A/G RATIO 0.5 (1-2); ALBUMIN 1.7 g/dl (3.4-5.0); ANION GAP 19.3 (5-15); BILIRUBIN TOTAL 2.3 mg/dL (0.2-1.0); BUN/CREATININE RATIO 61.1 (14-18); CALCIUM 7.7 mg/dL (8.5-10.1); CREATININE 1.8 mg/dL (0.55-1.02); EST CRCL DRUG DOSING (CG) 21.69 mL/min; POTASSIUM,K 4.3 mEq/L (3.5-5.1); PROTEIN TOTAL,TP 5.3 g/dl (6.4-8.2)
[2024-05-07 06:19] LABS: SLIDE REVIEW ABNORMAL SMEAR
[2024-05-07] MEDS: Dextrose 5%-0.45% NaCl 1,000 ML IV SCH (20:48)
[2024-05-08 05:52] LABS: BASOPHILS ABSOLUTE AUTO 0.1 K/mm3 (0.0-0.2); BASOPHILS PERCENT AUTO 0.3 % (0.0-1.0); EOSINOPHILS ABSOLUTE AUTO 0.3 K/mm3 (0.0-0.4); EOSINOPHILS PERCENT AUTO 1.2 % (0.0-6.0); HEMATOCRIT 41.2 % (37.0-47.0); HEMOGLOBIN 13.5 gm/dl (12.0-16.0); IMMATURE GRAN ABSOLUTE AUTO 0.33 K/mm3 (0.00-0.05); IMMATURE GRAN PERCENT AUTO 1.4 % (0.0-0.4); LYMPHOCYTES ABSOLUTE AUTO 0.7 K/mm3 (1.0-4.8); LYMPHOCYTES PERCENT AUTO 2.7 % (24.0-44.0); MEAN CORPUSCULAR HEMOGLOBIN 28.7 pg (28.0-32.0); MEAN CORPUSCULAR HGB CONC 32.8 g/dl (32.0-36.0); MEAN CORPUSCULAR VOLUME 87.5 fl (83.0-99.0); MEAN PLATELET VOLUME 11.2 fl (9.4-12.3); MONOCYTES ABSOLUTE AUTO 0.8 K/mm3 (0.0-0.8); MONOCYTES PERCENT AUTO 3.1 % (0.0-8.0); NEUTROPHILS ABSOLUTE AUTO 22.1 K/mm3 (1.8-7.7); NEUTROPHILS PERCENT AUTO 91.3 % (41.0-71.0); PLATELET COUNT,PLT 152 K/mm3 (150-400); RED BLOOD CELL COUNT 4.71 M/mm3 (4.10-5.30); WHITE BLOOD CELL COUNT,WBC 24.18 K/mm3 (3.9-11.3)
[2024-05-08 06:21] LABS: A/G RATIO 0.5 (1-2); ALBUMIN 1.6 g/dl (3.4-5.0); ANION GAP 22.2 (5-15); BILIRUBIN TOTAL 2.5 mg/dL (0.2-1.0); BUN/CREATININE RATIO 57.6 (14-18); CALCIUM 7.3 mg/dL (8.5-10.1); CREATININE 2.1 mg/dL (0.55-1.02); EST CRCL DRUG DOSING (CG) 18.59 mL/min; POTASSIUM,K 4.2 mEq/L (3.5-5.1); PROTEIN TOTAL,TP 5.1 g/dl (6.4-8.2)
[2024-05-08 06:26] LABS: SLIDE REVIEW ABNORMAL SMEAR
[2024-05-08] MEDS: Ondansetron 4 MG Tab.DIS PO PRN (07:10)
[2024-05-08] MEDS: Albumin 25% 12.5 GM in Premix Bag 1 BAG IV SCH (08:23)
[2024-05-08] MEDS ORDERED: LORazepam 2 MG/ML SDV IVPUSH PRN (20:23)
[2024-05-08] MEDS ORDERED: Morphine 10 MG/0.5 ML Oral Syringe PO PRN (20:27)
[2024-05-08] MEDS: Levothyroxine 25 MCG Tab PO SCH (23:11)
[2024-05-09 05:50] LABS: BASOPHILS PERCENT AUTO 0.1 % (0.0-1.0); EOSINOPHILS ABSOLUTE AUTO 0.5 K/mm3 (0.0-0.4); EOSINOPHILS PERCENT AUTO 2.4 % (0.0-6.0); HEMATOCRIT 39.2 % (37.0-47.0); IMMATURE GRAN ABSOLUTE AUTO 0.27 K/mm3 (0.00-0.05); IMMATURE GRAN PERCENT AUTO 1.4 % (0.0-0.4); LYMPHOCYTES ABSOLUTE AUTO 0.5 K/mm3 (1.0-4.8); LYMPHOCYTES PERCENT AUTO 2.3 % (24.0-44.0); MEAN CORPUSCULAR HEMOGLOBIN 29.9 pg (28.0-32.0); MEAN CORPUSCULAR HGB CONC 33.2 g/dl (32.0-36.0); MEAN CORPUSCULAR VOLUME 90.1 fl (83.0-99.0); MEAN PLATELET VOLUME 11.1 fl (9.4-12.3); MONOCYTES ABSOLUTE AUTO 0.7 K/mm3 (0.0-0.8); MONOCYTES PERCENT AUTO 3.3 % (0.0-8.0); NEUTROPHILS ABSOLUTE AUTO 18.1 K/mm3 (1.8-7.7); NEUTROPHILS PERCENT AUTO 90.5 % (41.0-71.0); PLATELET COUNT,PLT 90 K/mm3 (150-400); RED BLOOD CELL COUNT 4.35 M/mm3 (4.10-5.30); WHITE BLOOD CELL COUNT,WBC 19.98 K/mm3 (3.9-11.3)
[2024-05-09 06:10] LABS: ALBUMIN 2.6 g/dl (3.4-5.0); ANION GAP 18.8 (5-15); BILIRUBIN TOTAL 3.3 mg/dL (0.2-1.0); BUN/CREATININE RATIO 56.7 (14-18); CREATININE 2.1 mg/dL (0.55-1.02); EST CRCL DRUG DOSING (CG) 18.59 mL/min; POTASSIUM,K 3.8 mEq/L (3.5-5.1); PROTEIN TOTAL,TP 5.2 g/dl (6.4-8.2)
[2024-05-09 06:24] LABS: SLIDE REVIEW ABNORMAL SMEAR
[2024-05-09] MEDS ORDERED: LORazepam 1 MG Tab PO PRN (07:49)
[2024-05-09] MEDS ORDERED: Scopalamine 1mg/3day Transdermal Patch TRDERM PRN (07:51)
[2024-05-11] MEDS ORDERED: Acetaminophen 325 MG Supp RECTAL PRN (12:20)
[2024-05-11 20:37] VITALS: BP 96/42; PULSE 99
== END 2024-05-13 13:31 | disposition expired | DRG 871 ==
LOC: JD.ED 14:37 → JD.MS 21:42
PROVIDERS: ADMIT Student in an Organized Health Care Education/Training Program; ATTEND Internal Medicine
DX: A41.9 Sepsis, unspecified organism (principal); K65.2 Spontaneous bacterial peritonitis; K76.7 Hepatorenal syndrome; E87.20 Acidosis, unspecified; R18.8 Other ascites; C25.9 Malignant neoplasm of pancreas, unspecified; C78.01 Secondary malignant neoplasm of right lung; C78.7 Secondary malignant neoplasm of liver and intrahepatic bile duct; C77.9 Secondary and unspecified malignant neoplasm of lymph node, unspecified; N17.9 Acute kidney failure, unspecified; R65.20 Severe sepsis without septic shock; I10 Essential (primary) hypertension; F15.90 Other stimulant use, unspecified, uncomplicated; E11.9 Type 2 diabetes mellitus without complications; K74.60 Unspecified cirrhosis of liver; K80.20 Calculus of gallbladder without cholecystitis without obstruction; R53.81 Other malaise; R26.89 Other abnormalities of gait and mobility; Z66 Do not resuscitate; Z51.5 Encounter for palliative care; Z79.4 Long term (current) use of insulin; Z79.899 Other long term (current) drug therapy; Z79.84 Long term (current) use of oral hypoglycemic drugs; Z90.89 Acquired absence of other organs; Z98.890 Other specified postprocedural states; Z87.01 Personal history of pneumonia (recurrent); Z86.16 Personal history of COVID-19; Z68.29 Body mass index [BMI] 29.0-29.9, adult
CPT/HCPCS: 36415; 51701; 51798; 71045; 71045-26; 74176; 74176-26; 80053; 81003; 82140; 82947; 83605; 83735; 83880; 84100; 84484; 85025; 85610; 85730; 86140; 87040; 87428-QW; 93005; 93010; 96365; 97162-GP; 97530-GP; 99223; 99231; 99232; 99233; 99238; 99284; 99285-25; A9270-GY; C1758; J0696; J1644; J1815; J7799; P9047